=== PATIENT | male | born 1985 | race Caucasian/White ===

== ENCOUNTER 2022-06-20 18:19 | Inpatient (IN) | payer MEDICAID, OTHER ==
--- NOTE | 2022-06-20 18:57 | ED ---
General Adult HPI <Rahul Cohen - Last Filed: 06/21/22 04:47> - General Source: patient, family Mode of arrival: ambulatory Limitations: no limitations <Sammy Robb - Last Filed: 06/22/22 03:12> - General Chief complaint: Psychiatric Symptoms Stated complaint: mental health Time Seen by Provider: 06/20/22 18:27 - History of Present Illness Initial comments: This is a 36-year-old male with a past medical history including possible schizophrenia and manic depression presents emergency department with his sister for paranoia and increasing agitation. The patient himself was anxious on arriv al and stated that he did relapse with methamphetamines with his most recent use yesterday. The patient stated that he also uses Kratom every day. The patient's sister stated that the patient has been increasingly paranoid and he did confirm this. The patient's sister petitioned the patient for his behavior and did state that the patient was recently moving up here from [place]. The patient denied any other acute pain or distress at this time but was paranoid on evaluation as well as anxious. (Sammy Robb) - Related Data Home Medications Medication Instructions Recorded Confirmed Bictegrav/Emtricit/Tenofov Ala 1 tab PO DAILY 06/20/22 06/21/22 [Biktarvy 50-200-25 mg Tablet] FLUoxetine HCL [PROzac] 30 mg PO DAILY 06/20/22 06/21/22 OLANZapine [ZyPREXA] 5 mg PO DAILY 06/20/22 06/21/22 busPIRone HCL 5 mg PO BID 06/20/22 06/21/22 Allergies Allergy/AdvReac Type Severity Reaction Status Date / Time No Known Allergies Allergy Verified 06/21/22 18:06 Review of Systems ROS Other: All systems not noted in ROS Statement are negative. <Rahul Cohen - Last Filed: 06/21/22 04:47> ROS Other: All systems not noted in ROS Statement are negative. <Sammy Robb - Last Filed: 06/22/22 03:12> ROS Statement: Those systems with pertinent positive or pertinent negative responses have been documented in the HPI. Past Medical History Past Medical History: Asthma History of Any Multi-Drug Resistant Organisms: None Reported Past Surgical History: No Surgical Hx Reported Past Psychological History: Anxiety, Depression, Schizophrenia Smoking Status: Current every day smoker Past Drug Use History: Methamphetamine <Sammy Robb - Last Filed: 06/22/22 03:12> General Exam Limitations: no limitations General appearance: alert, anxious Head exam: Present: atraumatic, normocephalic, normal inspection Eye exam: Present: normal appearance, PERRL Pupils: Present: normal accommodation ENT exam: Present: normal exam, normal oropharynx, mucous membranes moist Neck exam: Present: normal inspection, full ROM Respiratory exam: Present: normal lung sounds bilaterally Cardiovascular Exam: Present: regular rate, normal rhythm, normal heart sounds GI/Abdominal exam: Present: soft, normal bowel sounds Extremities exam: Present: normal inspection, full ROM, other (Multiple superficial abrasions and lacerations noted to the bilateral forearms.) Back exam: Present: normal inspection, full ROM Neurological exam: Present: alert, oriented X3, CN II-XII intact Psychiatric exam: Present: anxious, other (Paranoid) Skin exam: Present: warm, dry <Sammy Robb - Last Filed: 06/22/22 03:12> Course Vital Signs 06/20/22 06/21/22 18:21 07:30 Temperature 97.6 F Pulse Rate 99 115 H Respiratory 20 20 Rate Blood Pressure 165/88 122/83 O2 Sat by Pulse 99 96 Oximetry Medical Decision Making <Rahul Cohen - Last Filed: 06/21/22 04:47> - Lab Data Result diagrams: 06/21/22 12:57 06/21/22 12:57 <Sammy Robb - Last Filed: 06/22/22 03:12> - Medical Decision Making Patient signed out to me pending results of EPS evaluation. Was updated by EPS that they will reevaluate after another observation period, as the patient is still intoxicated with drugs. Disposition still pending at this time. (Rahul Cohen) Was pt. sent in by a medical professional or institution (, PA, [facility], urgent care, hospital, or group home...) When possible be specific @ -No Did you speak to anyone other than the patient for history (EMS, parent, family, police, friend...)? What history was obtained from this source @ -Yes, patient's sister and friend who stated the patient was paranoid and was relapsed with methamphetamine use. They did also petition the patient. Did you review nursing and triage notes (agree or disagree)? Why? @ -I reviewed and agree with nursing and triage notes Were old charts reviewed (outside hosp., previous admission, EMS record, old EKG, old radiological studies, urgent care reports/EKG's, group home records)? Report findings @ -No old charts were reviewed Differential Diagnosis (chest pain, altered mental status, abdominal pain women, abdominal pain men, vaginal bleeding, weakness, fever, dyspnea, syncope, headache, dizziness, GI bleed, back pain, seizure, CVA, palpatations, mental health)? @ -Acute psychosis, methamphetamine abuse, polysubstance abuse, paranoia EKG interpreted by me (3pts min.). @ -None X-rays interpreted by me (1pt min.). @ -None done CT interpreted by me (1pt min.). @ -None done U/S interpreted by me (1pt. min.). @ -None done What testing was considered but not performed or refused? (CT, X-rays, U/S, labs)? Why? @ -None What meds were considered but not given or refused? Why? @ -None Did you discuss the management of the patient with other professionals (professionals i.e. , PA, [facility], lab, RT, psych nurse, medical social consultant, mineral technologist, teacher, community service patrol officer, wrapper caser)? Give summary @ -Yes, EPS nurse Was smoking cessation discussed for >3mins.? @ -Yes Was critical care preformed (if so, how long)? @ -No Were there social determinants of health that impacted care today? How? (Homelessness, low income, unemployed, alcoholism, drug addiction, transportation, low edu. Level, literacy, decrease access to med. care, [facility], rehab)? @ -Acute addiction Was there de-escalation of care discussed even if they declined (Discuss DNR or withdrawal of care, Hospice)? DNR status @ -No What co-morbidities impacted this encounter? (DM, HTN, Smoking, COPD, CAD, Cancer, CVA, ARF, Chemo, Hep., AIDS, mental health diagnosis, sleep apnea, morbid obesity)? @ -Polysubstance abuse, previous karen Was patient admitted / discharged? Hospital course, mention meds given and route, prescriptions, significant lab abnormalities, going to OR and other pertinent info. @ -The patient was seen and evaluated in emergency department. Physical exam, the patient was anxious however was able to answer questions appropriately. The patient stated that he did have paranoia but denied any suicidal or homicidal ideation. The patient did admit to using methamphetamine but stated that he had increasing paranoia over the last several days. The patient's family were also concerned about this and petition the patient. The patient remained stable and will be signed out pending EPS evaluation. Undiagnosed new problem with uncertain prognosis? @ -No Drug Therapy requiring intensive monitoring for toxicity (Heparin, Nitro, Insulin, Cardizem)? @ -No Were any procedures done? @ -No Diagnosis/symptom? @ -Polysubstance abuse, acute paranoia, psychosis Acute, or Chronic, or Acute on Chronic? @ -Acute Uncomplicated (without systemic symptoms) or Complicated (systemic symptoms)? @ -Complicated Side effects of treatment? @ -No Exacerbation, Progression, or Severe Exacerbation? @ -No Poses a threat to life or bodily function? How? (Chest pain, USA, AR, pneumonia, PE, COPD, DKA, ARF, appy, cholecystitis, CVA, Diverticulitis, Homicidal, Suicidal, threat to staff... and all critical care pts) @ -No 06/22/22 - chart review showed that the patient was admitted to the behavioral health unit in stable condition. The patient was admitted on 06/21/2022 under the previous physician's care. The patient was admitted in stable condition. (Sammy Robb) - Lab Data Lab Results 06/20/22 06/21/22 06/21/22 Range/Units 18:59 12:57 12:57 WBC 6.4 (3.8-10.6) k/uL RBC 5.05 (4.30-5.90) m/uL Hgb 15.6 (13.0-17.5) gm/dL Hct 46.3 (39.0-53.0) % MCV 91.6 (80.0-100.0) fL MCH 30.8 (25.0-35.0) pg MCHC 33.6 (31.0-37.0) g/dL RDW 12.5 (11.5-15.5) % Plt Count 169 (150-450) k/uL MPV 8.4 Neutrophils % 56 % Lymphocytes % 35 % Monocytes % 5 % Eosinophils % 1 % Basophils % 0 % Neutrophils # 3.6 (1.3-7.7) k/uL Lymphocytes # 2.2 (1.0-4.8) k/uL Monocytes # 0.3 (0-1.0) k/uL Eosinophils # 0.1 (0-0.7) k/uL Basophils # 0.0 (0-0.2) k/uL Sodium 138 (137-145) mmol/L Potassium 4.1 (3.5-5.1) mmol/L Chloride 100 (98-107) mmol/L Carbon Dioxide 27 (22-30) mmol/L Anion Gap 11 mmol/L BUN 14 (9-20) mg/dL Creatinine 1.01 (0.66-1.25) mg/dL Est GFR (CKD-EPI)AfAm >90 (>60 ml/min/1.73 sqM) Est GFR (CKD-EPI)NonAf >90 (>60 ml/min/1.73 sqM) Glucose 97 (74-99) mg/dL Calcium 9.2 (8.4-10.2) mg/dL Total Bilirubin 1.2 (0.2-1.3) mg/dL AST 37 (17-59) U/L ALT 17 (4-49) U/L Alkaline Phosphatase 70 (38-126) U/L Total Protein 8.4 H (6.3-8.2) g/dL Albumin 4.8 (3.5-5.0) g/dL Urine Color Urine Appearance (Clear) Urine pH (5.0-8.0) Ur Specific Jenison (1.001-1.035) Urine Protein (Negative) Urine Glucose (UA) (Negative) Urine Ketones (Negative) Urine Blood (Negative) Urine Nitrite (Negative) Urine Bilirubin (Negative) Urine Urobilinogen (<2.0) mg/dL Ur Leukocyte Esterase (Negative) Urine RBC (0-5) /hpf Urine WBC (0-5) /hpf Urine Bacteria (None) /hpf Urine Mucus (None) /hpf Urine Opiates Screen Not Detected (NotDetected) Ur Oxycodone Screen Not Detected (NotDetected) Urine Methadone Screen Not Detected (NotDetected) Ur Propoxyphene Screen Not Detected (NotDetected) Ur Barbiturates Screen Not Detected (NotDetected) U Tricyclic Antidepress Not Detected (NotDetected) Ur Phencyclidine Scrn Not Detected (NotDetected) Ur Amphetamines Screen Detected H (NotDetected) U Methamphetamines Scrn Detected H (NotDetected) U Benzodiazepines Scrn Not Detected (NotDetected) Urine Cocaine Screen Not Detected (NotDetected) U Marijuana (THC) Screen Detected H (NotDetected) Coronavirus (PCR) (Not Detectd) 06/21/22 06/21/22 Range/Units 12:57 13:16 WBC (3.8-10.6) k/uL RBC (4.30-5.90) m/uL Hgb (13.0-17.5) gm/dL Hct (39.0-53.0) % MCV (80.0-100.0) fL MCH (25.0-35.0) pg MCHC (31.0-37.0) g/dL RDW (11.5-15.5) % Plt Count (150-450) k/uL MPV Neutrophils % % Lymphocytes % % Monocytes % % Eosinophils % % Basophils % % Neutrophils # (1.3-7.7) k/uL Lymphocytes # (1.0-4.8) k/uL Monocytes # (0-1.0) k/uL Eosinophils # (0-0.7) k/uL Basophils # (0-0.2) k/uL Sodium (137-145) mmol/L Potassium (3.5-5.1) mmol/L Chloride (98-107) mmol/L Carbon Dioxide (22-30) mmol/L Anion Gap mmol/L BUN (9-20) mg/dL Creatinine (0.66-1.25) mg/dL Est GFR (CKD-EPI)AfAm (>60 ml/min/1.73 sqM) Est GFR (CKD-EPI)NonAf (>60 ml/min/1.73 sqM) Glucose (74-99) mg/dL Calcium (8.4-10.2) mg/dL Total Bilirubin (0.2-1.3) mg/dL AST (17-59) U/L ALT (4-49) U/L Alkaline Phosphatase (38-126) U/L Total Protein (6.3-8.2) g/dL Albumin (3.5-5.0) g/dL Urine Color Yellow Urine Appearance Clear (Clear) Urine pH 5.5 (5.0-8.0) Ur Specific Jenison 1.030 (1.001-1.035) Urine Protein 1+ H (Negative) Urine Glucose (UA) Negative (Negative) Urine Ketones 3+ H (Negative) Urine Blood Negative (Negative) Urine Nitrite Negative (Negative) Urine Bilirubin 1+ H (Negative) Urine Urobilinogen 2.0 (<2.0) mg/dL Ur Leukocyte Esterase Negative (Negative) Urine RBC 1 (0-5) /hpf Urine WBC 1 (0-5) /hpf Urine Bacteria Rare H (None) /hpf Urine Mucus Few H (None) /hpf Urine Opiates Screen (NotDetected) Ur Oxycodone Screen (NotDetected) Urine Methadone Screen (NotDetected) Ur Propoxyphene Screen (NotDetected) Ur Barbiturates Screen (NotDetected) U Tricyclic Antidepress (NotDetected) Ur Phencyclidine Scrn (NotDetected) Ur Amphetamines Screen (NotDetected) U Methamphetamines Scrn (NotDetected) U Benzodiazepines Scrn (NotDetected) Urine Cocaine Screen (NotDetected) U Marijuana (THC) Screen (NotDetected) Coronavirus (PCR) Not Detected (Not Detectd) Disposition <Rahul Cohen - Last Filed: 06/21/22 04:47> Is patient prescribed a controlled substance at d/c from ED?: No Time of Disposition: 13:00 Decision to Admit Reason: Admit from EC Decision Date: 06/21/22 Decision Time: 13:00 <Sammy Robb - Last Filed: 06/22/22 03:12> Clinical Impression: Suicidal ideation, Acute psychosis, Polysubstance (excluding opioids) dependence Disposition: ADMITTED IP TO THIS HOSP Condition: Stable
[2022-06-20 19:52] LABS: Cocaine Screen,Urine Not Detected (NotDetected); Phencyclidine Screen,Urine Not Detected (NotDetected); Urn Cannabinoid Scrn Detected (NotDetected)
[2022-06-20 19:53] LABS: Amphetamine Screen,Urine Detected (NotDetected); Barbiturate Screen,Urine Not Detected (NotDetected); Benzodiazepines Screen,Urine Not Detected (NotDetected); Methadone Screen, Urine Not Detected (NotDetected); Opiate Screen,Urine Not Detected (NotDetected); Oxycodone Screen, Urine Not Detected (NotDetected); Tricyclic Antidepressant,Urine Not Detected (NotDetected)
[2022-06-20] MEDS ORDERED: diphenhydrAMINE 50 MG/ML 1 ML VIAL IM STA (20:03)
[2022-06-20] MEDS ORDERED: HALOPERIDOL LACTATE 5 MG/ML 1 ML VIAL IM STA (20:03)
[2022-06-20] MEDS ORDERED: LORazepam 2 MG/ML INJ IM STA (20:03)
[2022-06-21] MEDS ORDERED: ALPRAZolam 1 MG TAB PO STA ×2 (07:47→12:18)
[2022-06-21] MEDS ORDERED: NICOTINE 14MG/24HR PATCH TRANSDERM STA (12:19)
[2022-06-21 13:23] LABS: Basophils % (A) 0 %; Eosinophils # (A) 0.1 k/uL (0-0.7); Eosinophils % (A) 1 %; HCT 46.3 % (39.0-53.0); HGB 15.6 gm/dL (13.0-17.5); Lymphocytes # (A) 2.2 k/uL (1.0-4.8); Lymphocytes % (A) 35 %; MCH 30.8 pg (25.0-35.0); MCHC 33.6 g/dL (31.0-37.0); MCV 91.6 fL (80.0-100.0); Mean Platelet Volume 8.4; Monocytes # (A) 0.3 k/uL (0-1.0); Monocytes % (A) 5 %; Neutrophils # (A) 3.6 k/uL (1.3-7.7); Neutrophils % (A) 56 %; Platelet Count 169 k/uL (150-450); RBC 5.05 m/uL (4.30-5.90); RDW 12.5 % (11.5-15.5); WBC 6.4 k/uL (3.8-10.6)
[2022-06-21] MEDS: BIKTARVY PO SCH (13:27)
[2022-06-21 13:30] LABS: ALT 17 U/L (4-49); AST 37 U/L (17-59); African American GFR (CKD) >90 (>60 ml/min/1.73 sqM); Albumin 4.8 g/dL (3.5-5.0); Alkaline Phosphatase 70 U/L (38-126); Anion Gap 11 mmol/L; Blood Urea Nitrogen 14 mg/dL (9-20); Calcium 9.2 mg/dL (8.4-10.2); Carbon Dioxide 27 mmol/L (22-30); Chloride 100 mmol/L (98-107); Glucose 97 mg/dL (74-99); Non-African American GFR(CKD) >90 (>60 ml/min/1.73 sqM); Potassium 4.1 mmol/L (3.5-5.1); Sodium 138 mmol/L (137-145); Total Bilirubin 1.2 mg/dL (0.2-1.3); Total Protein 8.4 g/dL (6.3-8.2)
[2022-06-21 13:42] LABS: Appearance,Urine Clear (Clear); Bacteria,Urine Rare /hpf; Bilirubin,Urine 1+ (Negative); Blood,Urine Negative (Negative); Color,Urine Yellow; Glucose,Urine (UA) Negative (Negative); Leukocyte Esterase,Urine Negative (Negative); Mucus,Urine Few /hpf; Nitrite,Urine Negative (Negative); PH, Urine 5.5 (5.0-8.0); Protein,Urine 1+ (Negative); RBC,Urine 1 /hpf (0-5); WBC,Urine 1 /hpf (0-5)
[2022-06-21 13:45] LABS: Ketones,Urine 3+ (Negative)
[2022-06-21] MEDS ORDERED: MAG HYDROX/AL HYDROX/SIMETH 30 ML CUP PO PRN (17:01)
[2022-06-21] MEDS ORDERED: MAGNESIUM HYDROXIDE 2,400 MG/10 ML CUP PO PRN (17:01)
[2022-06-21] MEDS ORDERED: ACETAMINOPHEN TAB 325 MG TAB PO PRN (17:01)
--- NOTE | 2022-06-21 23:29 | P.MDCNMH ---
History of Present Illness H&P Date: 06/21/22 Chief Complaint: medical evaluation 36 year old male with HIV on medications patient was petitioned for evaluation due to behavioral issues, having increase agitations, and paranoia patient denies any medical concerns at this time, denies fever, chills, cough, URI, chest pain , SOB, nausea vomiting, abd pain or GI bleeding , denies any changes in urinary or bowel habits. patient admits to tobacco smoking , methamphetamine and denies alcohol Pertinent positives as noted in HPI. All other systems were reviewed and are negative Constitutional: No acute distress, conversant Eyes: Anicteric sclerae, moist conjunctiva, Pupils equal round reactive to light ENMT: NC/AT Oropharynx clear, no erythema, or exudates Neck: Supple, no masses, or JVD No carotid bruits No thyromegaly Lungs: Clear to auscultation Clear to percussion Normal respiratory effort, no accessory muscle use Cardiovascular: Heart regular in rate and rhythm, No murmurs, gallops, or rubs No peripheral edema Abdominal: Soft Nontender, no guarding, rebound or rigidity Abdomen moving with respiration Normoactive bowel sounds No hepatomegaly, No splenomegaly No palpable mass No abdominal wall hernia noted Skin: Normal temperature, tone, texture, turgor No induration No subcutaneous nodules No rash, lesions No ulcers Extremities: No digital cyanosis No clubbing Pedal pulses intact and symmetrical Radial pulses intact and symmetrical No calf tenderness Psychiatric: Alert and oriented to person, place and time Neuro Muscles Strength 5/5 in all 4 extremities Sensation to light touch grossly present throughout Cranial nerves II-XII grossly intact Lymphatics: no palpable cervical or supraclavicular lymph nodes A/P agitation , and paranoia management per psych HIV positive continue ART check CD4 blood work reviewed , unremarkable stable from medical stand point thank you for this consultation Past Medical History Past Medical History: Asthma History of Any Multi-Drug Resistant Organisms: None Reported Past Surgical History: No Surgical Hx Reported Smoking Status: Current every day smoker Medications and Allergies Home Medications Medication Instructions Recorded Confirmed Type Bictegrav/Emtricit/Tenofov Ala 1 tab PO DAILY 06/20/22 06/21/22 History [Biktarvy 50-200-25 mg Tablet] FLUoxetine HCL [PROzac] 30 mg PO DAILY 06/20/22 06/21/22 History OLANZapine [ZyPREXA] 5 mg PO DAILY 06/20/22 06/21/22 History busPIRone HCL 5 mg PO BID 06/20/22 06/21/22 History Allergies Allergy/AdvReac Type Severity Reaction Status Date / Time No Known Allergies Allergy Verified 06/21/22 18:06 Physical Exam Vitals: Vital Signs Temp Pulse Pulse Resp BP BP Pulse Ox 06/21/22 18:34 98.3 F 103 H 16 150/84 06/21/22 07:30 115 H 20 122/83 96 Intake and Output 06/21/22 06/21/22 06/22/22 14:59 22:59 06:59 Other: Weight 92.986 kg Cranial Nerve Examination - Cranial Nerves Cranial Nerve II- Optic: Intact Cranial Nerve III- Oculomotor: Intact Cranial Nerve IV- Trochlear: Intact Cranial Nerve V- Trigeminal: Intact Cranial Nerve - Abducens: Intact Cranial Nerve VII- Facial: Intact Cranial Nerve VIII- Auditory: Intact Cranial Nerve IX- Glossopharyngeal: Intact Cranial Nerve X- Vagus: Intact Cranial Nerve XI- Accessory: Intact Cranial Nerve XII- Hypoglossal: Intact Results CBC & Chem 7: 06/21/22 12:57 06/21/22 12:57 Labs: Abnormal Lab Results - Last 24 Hours (Table) 06/21/22 06/21/22 Range/Units 12:57 13:16 Total Protein 8.4 H (6.3-8.2) g/dL Urine Protein 1+ H (Negative) Urine Ketones 3+ H (Negative) Urine Bilirubin 1+ H (Negative) Urine Bacteria Rare H (None) /hpf Urine Mucus Few H (None) /hpf
[2022-06-22] MEDS ORDERED: hydrOXYzine pamoate 25 MG CAP PO PRN (03:24)
[2022-06-22] MEDS ORDERED: hydrOXYzine HCL 50 MG/ML 1 ML VIAL IM PRN (03:24)
[2022-06-22] MEDS ORDERED: haloperidoL 5 MG TAB PO PRN (03:25)
[2022-06-22] MEDS ORDERED: HALOPERIDOL LACTATE 5 MG/ML 1 ML VIAL IM PRN (03:25)
[2022-06-22] MEDS ORDERED: NICOTINE 14MG/24HR PATCH TRANSDERM SCH (09:00)
[2022-06-22] MEDS ORDERED: NON FORMULARY DRUG (Bictegrav/Emtricit/Tenofov Ala [Biktarvy 50-200-25 Mg Tablet] 1 EACH T PO SCH (09:00)
[2022-06-22] MEDS: BIKTARVY PO SCH (09:34)
--- NOTE | 2022-06-22 10:20 | P.HP ---
Psychiatric H&P - . H&P Date: 06/22/22 History & Physical: Allergies Allergy/AdvReac Type Severity Reaction Status Date / Time No Known Allergies Allergy Verified 06/21/22 18:06 Vital Signs Temp 98.1 F 06/22/22 03:21 Pulse 126 H 06/22/22 05:41 Resp 17 06/22/22 05:41 BP 125/87 06/22/22 05:41 Pulse Ox 99 06/22/22 05:41 FiO2 Intake & Output 06/21/22 06/22/22 06/22/22 18:59 06:59 18:59 Weight 92.986 kg Laboratory Last Values WBC 6.4 k/uL (3.8-10.6) 06/21/22 12:57 RBC 5.05 m/uL (4.30-5.90) 06/21/22 12:57 Hgb 15.6 gm/dL (13.0-17.5) 06/21/22 12:57 Hct 46.3 % (39.0-53.0) 06/21/22 12:57 MCV 91.6 fL (80.0-100.0) 06/21/22 12:57 MCH 30.8 pg (25.0-35.0) 06/21/22 12:57 MCHC 33.6 g/dL (31.0-37.0) 06/21/22 12:57 RDW 12.5 % (11.5-15.5) 06/21/22 12:57 Plt Count 169 k/uL (150-450) 06/21/22 12:57 MPV 8.4 06/21/22 12:57 Neutrophils % 56 % 06/21/22 12:57 Lymphocytes % 35 % 06/21/22 12:57 Monocytes % 5 % 06/21/22 12:57 Eosinophils % 1 % 06/21/22 12:57 Basophils % 0 % 06/21/22 12:57 Neutrophils # 3.6 k/uL (1.3-7.7) 06/21/22 12:57 Lymphocytes # 2.2 k/uL (1.0-4.8) 06/21/22 12:57 Monocytes # 0.3 k/uL (0-1.0) 06/21/22 12:57 Eosinophils # 0.1 k/uL (0-0.7) 06/21/22 12:57 Basophils # 0.0 k/uL (0-0.2) 06/21/22 12:57 Sodium 138 mmol/L (137-145) 06/21/22 12:57 Potassium 4.1 mmol/L (3.5-5.1) 06/21/22 12:57 Chloride 100 mmol/L (98-107) 06/21/22 12:57 Carbon Dioxide 27 mmol/L (22-30) 06/21/22 12:57 Anion Gap 11 mmol/L 06/21/22 12:57 BUN 14 mg/dL (9-20) 06/21/22 12:57 Creatinine 1.01 mg/dL (0.66-1.25) 06/21/22 12:57 Est GFR (CKD-EPI)AfAm >90 (>60 ml/min/1.73 sqM) 06/21/22 12:57 Est GFR (CKD-EPI)NonAf >90 (>60 ml/min/1.73 sqM) 06/21/22 12:57 Glucose 97 mg/dL (74-99) 06/21/22 12:57 Calcium 9.2 mg/dL (8.4-10.2) 06/21/22 12:57 Total Bilirubin 1.2 mg/dL (0.2-1.3) 06/21/22 12:57 AST 37 U/L (17-59) 06/21/22 12:57 ALT 17 U/L (4-49) 06/21/22 12:57 Alkaline Phosphatase 70 U/L (38-126) 06/21/22 12:57 Total Protein 8.4 g/dL (6.3-8.2) H 06/21/22 12:57 Albumin 4.8 g/dL (3.5-5.0) 06/21/22 12:57 Urine Color Yellow 06/21/22 13:16 Urine Appearance Clear (Clear) 06/21/22 13:16 Urine pH 5.5 (5.0-8.0) 06/21/22 13:16 Ur Specific [place] 1.030 (1.001-1.035) 06/21/22 13:16 Urine Protein 1+ (Negative) H 06/21/22 13:16 Urine Glucose (UA) Negative (Negative) 06/21/22 13:16 Urine Ketones 3+ (Negative) H 06/21/22 13:16 Urine Blood Negative (Negative) 06/21/22 13:16 Urine Nitrite Negative (Negative) 06/21/22 13:16 Urine Bilirubin 1+ (Negative) H 06/21/22 13:16 Urine Urobilinogen 2.0 mg/dL (<2.0) 06/21/22 13:16 Ur Leukocyte Esterase Negative (Negative) 06/21/22 13:16 Urine RBC 1 /hpf (0-5) 06/21/22 13:16 Urine WBC 1 /hpf (0-5) 06/21/22 13:16 Urine Bacteria Rare /hpf (None) H 06/21/22 13:16 Urine Mucus Few /hpf (None) H 06/21/22 13:16 Urine Opiates Screen Not Detected (NotDetected) 06/20/22 18:59 Ur Oxycodone Screen Not Detected (NotDetected) 06/20/22 18:59 Urine Methadone Screen Not Detected (NotDetected) 06/20/22 18:59 Ur Propoxyphene Screen Not Detected (NotDetected) 06/20/22 18:59 Ur Barbiturates Screen Not Detected (NotDetected) 06/20/22 18:59 U Tricyclic Antidepress Not Detected (NotDetected) 06/20/22 18:59 Ur Phencyclidine Scrn Not Detected (NotDetected) 06/20/22 18:59 Ur Amphetamines Screen Detected (NotDetected) H 06/20/22 18:59 U Methamphetamines Scrn Detected (NotDetected) H 06/20/22 18:59 U Benzodiazepines Scrn Not Detected (NotDetected) 06/20/22 18:59 Urine Cocaine Screen Not Detected (NotDetected) 06/20/22 18:59 U Marijuana (THC) Screen Detected (NotDetected) H 06/20/22 18:59 Coronavirus (PCR) Not Detected (Not Detectd) 06/21/22 12:57 06/22/22 08:30 IDENTIFYING DATA: Patient is a single, employed, 36-year-old [place]ien male who is presenting with suicidal ideation, psychosis, and substance use. HPI: Patient was brought in involuntarily to the ED after receiving a petition by his sister stating "Someone is following him. Shadow people and invisible people living in the house. Thinks I am going to kill him." Patient's UDS was positive for amphetamines, methamphetamines, and marijuana. He also admitted to using Kratom every day. He was given Haldol, Ativan, Benadryl while in the ED. Despite this, patient was making nonsensical statements following intoxication from the substances. Patient was reassessed after he was more linear in his thinking and he said that he felt embarrassed and a burden to his family. He was reporting suicidal ideation with a plan to overdose or cut himself. He was agreeable to voluntary admission to the inpatient psychiatric unit at [facility]. Patient says that he has been sober of methamphetamine use for the past 8 months but had a relapse recently and used 2 days in a row. He says he cannot recall the amount of methamphetamine he used but he says that he did not attend work as a result of this. He reports residing with his sister who he says has been concerned about his health. He says that she has been considering pursuing guardianship on him due to his substance use issues. Patient reports that the trigger for using methamphetamine for him is experiencing auditory and visual hallucinations. He says he sees "flesh eating demons that are black and growling" especially at night. He says that he "hears them eating people". He also says they prevent him from walking. He states that he has been experiencing this since childhood but that it has worsened during his adulthood. He says that these experiences are ongoing even while sober of substances. He says that Zyprexa has been helpful for these experiences. He denies command auditory hallucinations currently. He denies auditory and visual hallucinations currently. Patient states that he was only endorsing suicidal ideation due to his substance use. He expresses that due to his sexual orientation, he has been judged by others. Patient becomes tearful as he says that he sometimes uses as a method of trying to "blend in" with others. Patient endorses a history of depression and anxiety. He says that that Effexor and Wellbutrin have been very helpful for this. He reports good sleep with the Zyprexa. He does not report any appetite concerns. Patient currently denies suicidal ideation, intent or plan. He denies homicidal ideation, intent or plan. While sober of substances, patient denies constellation of symptoms consistent with karen. He repeatedly requests to be on Xanax or Ativan to help him with anxiety. Substance use history as described below. PSYCH HX: He reports receiving treatment for schizoaffective disorder. Past tx: Effexor 75 mg daily, Wellbutrin 100 mg daily, Zyprexa 5 mg, Fluoxetine (was not helpful), Xanax (helpful), Buspar 10 mg daily Hospitalizations: Denies NSSI: Cutting for [facility]" SA: Denies PMH: Was on Suboxone in [place]. HIV (on treatment) ALLERGIES: NKDA PCP: Dr. Penaloza (setting up) SUBSTANCE HX: Alcohol: Denies Cocaine: Denies Tobacco: 1 ppd Cannabis: "A lot of weed" daily Kratom: Started using 2 months ago Meth: Started using 14 -15 years ago. He was sober for 8 months and had a recent relapse prior to hospitalization. He endorses having attended rehab in the past Fentanyl and heroin use: Started when he was 19-20 years old. In 20s: "A lot" and estimates to be 10 bags daily. He says he last used 9-10 months. Denies using other substances SOCIAL/LEGAL HX: He grew up in [place] with mother and 3 sisters. They moved to [place] when he was child. He came back to [place] (2 months ago) after being imprisoned. He says he was released from nursing home in Apr. He is living with his sister. He says he reads on Paganism and Satanism. Highest level of education: GED Vocation: Factory Legal problems: Arson - was in skilled nursing and nursing home and spent about 1 year in the system. FAM PSYCH HX: He suspects on his mother's side Suicide attempts: Denies MENTAL STATUS EXAM: General Appearance: Patient appears to be stated age is alert, directable, and attempts to cooperate] Patient appears to have fair hygiene and grooming. Behavior: Patient is seated without any agitated behavior. Speech: Patient's speech is fluent and nonpressured. Mood/Affect: Patient reports their mood is depressed, affect is congruent. Suicidality/Homicidality: Patient denies having any homicidal ideation intent or plan. Denies any suicidal ideations intent or plan Perceptions: Patient denies any visual hallucinations and denies any auditory hallucinations. Endorses recent AVH last night Though content/process: There is no evidence of any delusional thought content and thought process is linear and goal-directed. Memory and concentration: AOX3, grossly intact for the purposes of this session. Can spell "WORLD" backwards Judgment and insight: Poor STRENGTHS/WEAKNESSES: Strength is family support. Weakness is comorbid substance use and poor insight. 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 Patient signed adult voluntary form and medication consent and is placed in patient's chart. -Medications: - Increase Zyprexa to 10 mg qHS for psychosis - Start Effexor 75 mg daily for mood - NRT - nicorette gum -Patient was counselled on substance abuse and desired to cut back on use. Motivational interviewing. Patient was trying to find Suboxone provider -Patient was informed of the risks, benefits and side effects of the medication and patient verbally consented to taking the medications. Patient signed med consent form and was placed in chart. -Internal Medicine consult to perform medical evaluation and physical. -SW on board for discharge planning. Encourage patient to participate in groups to work on coping skills. 06/22/22 09:00
[2022-06-22] MEDS: VENLAFAXINE HCL ER 75 MG CAP PO SCH (10:40)
[2022-06-22 11:13] LABS: Chol/HDL Ratio 2.76 Ratio; LDL Cholesterol,Calculated 93.9 mg/dL (0.0-131.0)
[2022-06-22] MEDS: OLANZapine 10 MG TAB PO SCH (21:55)
[2022-06-23] MEDS: VENLAFAXINE HCL ER 75 MG CAP PO SCH (08:54)
[2022-06-23] MEDS: BIKTARVY PO SCH (08:54)
[2022-06-23] MEDS: NICOTINE GUM (POLACRILEX) 2 MG GUM BUCCAL PRN ×4 (08:55→18:07)
--- NOTE | 2022-06-23 14:54 | P.PN ---
Progress Note - Text Progress Note Date: 06/23/22 S&O: Patient was seen in rounds. He said he was snorting meth for the last few days after being sober for about 8 months. He said he started to see things and hear voices and so he came to the hospital. He was also abusing cannabis and opiates. Apparently he was in long-term and fdc in the past. He said he has ongoing depression and wanted to know if he can take Wellbutrin. He was counseled about. He is on 10 mg of Zyprexa at night and has been sleepy during daytime and even during examination he was yawning often. He did not want the Zyprexa dose to be reduced to 5 mg even though his psychosis appears to be related to meth abuse and was counseled about it. His drug screening was n egative for opiates and he said he has not been doing opiates for a while now. He also last when he can go home. He was counseled about it. Even though he had gone through rehab in the past he said he will have outpatient counseling regarding substance abuse. This is a white male with adequate hygiene. He is calm and fairly cooperative. He did not show any psychomotor agitation or retardation. But he was yawning quite often. His speech is spontaneous relevant and goal-directed. Mood is somewhat anxious and angry. Affect is appropriate to the thought content. He denies current hallucinations, delusional thinking suicide and homicide thoughts. His sensorium is clear. A&P: Continue Zyprexa therapies including groups. Discontinue Effexor since he is on Zyprexa and Effexor XR takes a long time to work.
[2022-06-23 15:07] LABS: T4/T8 Ratio (CD4:CD8) 0.4 (1.0-3.7)
[2022-06-23] MEDS: OLANZapine 10 MG TAB PO SCH (21:04)
[2022-06-24] MEDS: BIKTARVY PO SCH (08:15)
[2022-06-24] MEDS: NICOTINE GUM (POLACRILEX) 2 MG GUM BUCCAL PRN ×2 (10:44→16:42)
--- NOTE | 2022-06-24 13:10 | P.PN ---
Progress Note - Text Progress Note Date: 06/24/22 S&O: Patient was seen in rounds. He said he slept better last night and his appetite is getting better. He asked why his Effexor was discontinued. He was counseled that his problems appear to be related to meth abuse and he is on Zyprexa which will help to stabilize his mood if he has independent mood disorder and Effexor will interfere with more stabilization. He understood and accepted this explanation. He also said he will stop doing meth and other drugs because he learned his lesson about the adverse effects of meth on his body and mind. He said he will stay with his sister who apparently is trying to be his guardian and plans on going on disability. He was advised if he stays clean most likely he would be able to work and working is always better than staying home and doing nothing which can cause lot problem and may take him back to abusing drugs. He agreed. This is a white male with adequate hygiene. He does not show any psychomotor agitation or retardation. He has not been yawning today. His speech is spontaneous relevant and goal-directed. His mood is euthymic to cheerful and affect is appropriate. He denies hallucinations delusional thinking suicide and homicide thoughts. His sensorium is clear. A&P: Continue Zyprexa, groups and other therapies.
[2022-06-24] MEDS: OLANZapine 10 MG TAB PO SCH (20:06)
[2022-06-25 07:16] VITALS: BP 114/66; PULSE 54; RESP 14; TEMP 97.8
[2022-06-25] MEDS: BIKTARVY PO SCH (08:15)
--- NOTE | 2022-06-25 11:10 | P.DS ---
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 After psychiatric H&P he was started on Zyprexa 10 mg at bedtime and Effexor 75 mg daily in addition to other comfort medications. After general medical H&P he was started on his HIV medication by Dr. Patten. He was also asked to attend the groups. But he was not attending groups until yesterday. When I saw him on 06/23/2022 his Effexor was discontinued since he was already on Zyprexa and Effexor takes a long time to work if at all is going to work and is not really indicated for mood disorders. Patient had some questions about this and he was counseled and he agreed to take only mood stabilizer instead of antidepressants. He gradually improved did not have any withdrawal symptoms except for yawning for the first couple of days. His mood became euthymic, his irritability was gone and was more cooperative. He had agreed to seek outpatient drug counseling and mental health counseling also in addition to taking his medication. He said he will be living with his sister who is supportive of him. His discharge plan was discussed by the treatment team today and it was agreed to discharge him. Mental status examination: This is a white male with adequate hygiene. He was laying down in his bed when he was called. He does not show any psychomotor agitation or retardation. He continues to be calm and cooperative. His speech is spontaneous relevant and goal-directed. His mood is euthymic to cheerful and affect is appropriate. Denies hallucinations delusional thinking suicide and homicide thoughts. Sensorium is clear. Assessment: Please see mental status examination under hospital course above. Health Concerns: HIV Pertinent Studies: None Procedures: None Patient Condition at Discharge: Stable Plan - Discharge Summary Discharge Rx Participant: No New Discharge Prescriptions: New Mag Hydrox/Al Hydrox/Simeth [Maalox] 30 ml PO Q4HR PRN ml PRN Reason: Gi Upset Magnesium Hydroxide [Milk of Magnesia Concentrate] 2,400 mg PO DAILY PRN ml PRN Reason: Constipation Acetaminophen Tab [Tylenol] 650 mg PO Q4HR PRN tab PRN Reason: Pain/Discomfort OLANZapine [ZyPREXA] 10 mg PO HS tab Continue Bictegrav/Emtricit/Tenofov Ala [Biktarvy 50-200-25 mg Tablet] 1 tab PO DAILY Discontinued busPIRone HCL 5 mg PO BID OLANZapine [ZyPREXA] 5 mg PO DAILY FLUoxetine HCL [PROzac] 30 mg PO DAILY Discharge Medication List Bictegrav/Emtricit/Tenofov Ala [Biktarvy 50-200-25 mg Tablet] 1 tab PO DAILY 06/20/22 [History] Acetaminophen Tab [Tylenol] 650 mg PO Q4HR PRN tab 06/25/22 [Rx] Mag Hydrox/Al Hydrox/Simeth [Maalox] 30 ml PO Q4HR PRN ml 06/25/22 [Rx] Magnesium Hydroxide [Milk of Magnesia Concentrate] 2,400 mg PO DAILY PRN ml 06/25/22 [Rx] OLANZapine [ZyPREXA] 10 mg PO HS tab 06/25/22 [Rx] Follow up Appointment(s)/Referral(s): None,Stated [REFERRING] - 1-2 days Activity/Diet/Wound Care/Special Instructions: Avoid the use of street drugs and alcohol. Take all medications as prescribed. When you are in need of refills on your medications, please contact your medical provider and/or outpatient psychiatrist to have this done. Please go to scheduled outpatient appointments for aftercare treatment. If symptoms return or become worse, call the crisis line at and/or go to the nearest emergency room for evaluation.
[2022-06-25] MEDS: NICOTINE GUM (POLACRILEX) 2 MG GUM BUCCAL PRN ×2 (11:30→14:49)
== END 2022-06-25 15:33 | disposition home or self-care (01) | DRG 750 ==
LOC: EC 18:19 → 3MHU 06-21 16:49
PROVIDERS: ADMIT Psychiatry & Neurology Psychiatry; ATTEND Psychiatry & Neurology Psychiatry
DX: F25.1 Schizoaffective disorder, depressive type (principal); B20 Human immunodeficiency virus [HIV] disease; R45.851 Suicidal ideations; F15.259 Other stimulant dependence with stimulant-induced psychotic disorder, unspecified; F12.20 Cannabis dependence, uncomplicated; Z28.310 Unvaccinated for COVID-19; F11.20 Opioid dependence, uncomplicated; J45.909 Unspecified asthma, uncomplicated; F41.9 Anxiety disorder, unspecified; F17.210 Nicotine dependence, cigarettes, uncomplicated; Z79.899 Other long term (current) drug therapy; Z71.51 Drug abuse counseling and surveillance of drug abuser; Z71.6 Tobacco abuse counseling; Z20.822 Contact with and (suspected) exposure to COVID-19
CPT/HCPCS: 36415; 80053; 80061; 80306; 81001; 82075; 83036; 85025; 86360; 87635; 96372; 99285

== ENCOUNTER 2022-10-07 09:51 | Emergency (ER) | payer OTHER ==
[2022-10-07 09:57] VITALS: RESP 18; TEMP 98.2
[2022-10-07] MEDS ORDERED: KETOROLAC 15 MG/ML 1 ML VIAL IVP STA (10:12)
[2022-10-07] MEDS ORDERED: SODIUM CHLORIDE 0.9% 1,000 ML IV STA (10:12)
--- NOTE | 2022-10-07 10:15 | ED ---
General Adult HPI - General Chief complaint: Urogenital Stated complaint: poss kidney stone Time Seen by Provider: 10/07/22 10:04 Source: patient Mode of arrival: ambulatory Limitations: no limitations - History of Present Illness Initial comments: 37-year-old male with past medical history significant for kidney stones presents to ED with a chief complaint of dysuria. Patient states 2 days ago started to experience difficulty urinating. Yesterday, started to experience pain with urination and right flank pain. Patient states flank pain is constant and sharp and stabbing in nature. Associated chills. Denies fever. No nausea or vomiting. Notes history of prior kidney stones states that pain feels similar to this. No other complaints. - Related Data Home Medications Medication Instructions Recorded Confirmed Bictegrav/Emtricit/Tenofov Ala 1 tab PO DAILY 06/20/22 06/21/22 [Biktarvy 50-200-25 mg Tablet] Previous Rx's Medication Instructions Recorded Acetaminophen Tab [Tylenol] 650 mg PO Q4HR PRN tab 06/25/22 Mag Hydrox/Al Hydrox/Simeth 30 ml PO Q4HR PRN ml 06/25/22 [Maalox] Magnesium Hydroxide [Milk of 2,400 mg PO DAILY PRN ml 06/25/22 Magnesia Concentrate] OLANZapine [ZyPREXA] 10 mg PO HS tab 06/25/22 Allergies Allergy/AdvReac Type Severity Reaction Status Date / Time No Known Allergies Allergy Verified 10/07/22 09:57 Review of Systems ROS Statement: Those systems with pertinent positive or pertinent negative responses have been documented in the HPI. ROS Other: All systems not noted in ROS Statement are negative. Past Medical History Past Medical History: Asthma Additional Past Medical History / Comment(s): Kidney stones History of Any Multi-Drug Resistant Organisms: None Reported Past Surgical History: No Surgical Hx Reported Past Psychological History: Anxiety, Depression, Schizophrenia Smoking Status: Current every day smoker Past Alcohol Use History: None Reported Past Drug Use History: Marijuana, Methamphetamine General Exam Limitations: no limitations General appearance: alert, in no apparent distress Eye exam: Present: normal appearance Respiratory exam: Present: normal lung sounds bilaterally Cardiovascular Exam: Present: regular rate, normal rhythm GI/Abdominal exam: Present: soft (Diffuse abdominal tenderness. Patient was in the suprapubic region. No rebound guarding or rigidity. Right CVA tenderness to percussion.) Neurological exam: Present: alert, oriented X3 Skin exam: Present: warm, dry Course Vital Signs 10/07/22 10/07/22 09:54 11:46 Temperature 98.2 F Pulse Rate 92 86 Respiratory 18 18 Rate Blood Pressure 125/82 132/80 O2 Sat by Pulse 99 98 Oximetry Medical Decision Making - Medical Decision Making Was pt. sent in by a medical professional or institution (, [facility], SOCIAL SERVICES, urgent care, hospital, or residential...) When possible be specific @ -No Did you speak to anyone other than the patient for history (EMS, parent, family, police, friend...)? What history was obtained from this source @ -No Did you review nursing and triage notes (agree or disagree)? Why? @ -I reviewed and agree with nursing and triage notes Were old charts reviewed (outside hosp., previous admission, EMS record, old EKG, old radiological studies, urgent care reports/EKG's, residential records)? Report findings @ -No old charts were reviewed Differential Diagnosis (chest pain, altered mental status, abdominal pain women, abdominal pain men, vaginal bleeding, weakness, fever, dyspnea, syncope, headache, dizziness, GI bleed, back pain, seizure, CVA, palpatations, mental health, musculoskeletal)? @ -Differential Abdominal Pain Men: Appendicitis, cholecystitis, diverticulosis, ischemic bowel, pancreatitis, hepatitis, UTI, gastroenteritis, AAA, incarcerated hernia, bowel obstruction, constipation, inflammatory bowel, hepatitis, peptic ulcer disease, splenic infarction, perforated viscus, testicular torsion, this is not meant to be an all-inclusive list EKG interpreted by me (3pts min.). @ -None X-rays interpreted by me (1pt min.). @ -None done CT interpreted by me (1pt min.). @ -CT showed nonobstructing stone in the right kidney measuring 2 mm. No hydronephrosis. U/S interpreted by me (1pt. min.). @ -None done What testing was considered but not performed or refused? (CT, X-rays, U/S, l abs)? Why? @ -None What meds were considered but not given or refused? Why? @ -None Did you discuss the management of the patient with other professionals (professionals i.e. , [facility], SOCIAL SERVICES, lab, RT, psych nurse, licensed clinical social worker, pipe line maintenance supervisor, teacher, detention officer, showcase trimmer)? Give summary @ -No Was smoking cessation discussed for >3mins.? @ -No Was critical care preformed (if so, how long)? @ -No Were there social determinants of health that impacted care today? How? (Homelessness, low income, unemployed, alcoholism, drug addiction, transportation, low edu. Level, literacy, decrease access to med. care, alf, rehab)? @ -No Was there de-escalation of care discussed even if they declined (Discuss DNR or withdrawal of care, Hospice)? DNR status @ -No What co-morbidities impacted this encounter? (DM, HTN, Smoking, COPD, CAD, Cance r, CVA, ARF, Chemo, Hep., AIDS, mental health diagnosis, sleep apnea, morbid obesity)? @ -None Was patient admitted / discharged? Hospital course, mention meds given and route, prescriptions, significant lab abnormalities, going to OR and other pertinent info. @ -Discharged. Urine reveals WBC 38. Leukocyte esterase moderate. Does not have a white count. Vital signs stable while in the ED, afebrile. Imaging shows no evidence of obstructing stone or hydronephrosis. Urine will be sent for culture. If positive, patient will be started antibiotics. Discharged home in stable condition. Discussed return precautions with patient who verbalizes agreement. Undiagnosed new problem with uncertain prognosis? @ -No Drug Therapy requiring intensive monitoring for toxicity (Heparin, Nitro, Insulin, Cardizem)? @ -No Were any procedures done? @ -No Diagnosis/symptom? @ -Nonobstructing right renal stone, dysuria Acute, or Chronic, or Acute on Chronic? @ -Acute Uncomplicated (without systemic symptoms) or Complicated (systemic symptoms)? @ -Uncomplicated Side effects of treatment? @ -No Exacerbation, Progression, or Severe Exacerbation? @ -No Poses a threat to life or bodily function? How? (Chest pain, [place], [place], pneumonia, PE, COPD, DKA, ARF, appy, cholecystitis, CVA, Diverticulitis, Homicidal, Suicidal, threat to staff... and all critical care pts) @ -No - Lab Data Result diagrams: 10/07/22 10:21 10/07/22 10:21 Lab Results 10/07/22 10/07/22 10/07/22 Range/Units 10:21 10:21 10:21 WBC 7.6 (3.8-10.6) k/uL RBC 4.68 (4.30-5.90) m/uL Hgb 15.5 (13.0-17.5) gm/dL Hct 43.4 (39.0-53.0) % MCV 92.8 (80.0-100.0) fL MCH 33.1 (25.0-35.0) pg MCHC 35.7 (31.0-37.0) g/dL RDW 14.1 (11.5-15.5) % Plt Count 211 (150-450) k/uL MPV 8.0 Neutrophils % 66 % Lymphocytes % 27 % Monocytes % 4 % Eosinophils % 1 % Basophils % 0 % Neutrophils # 5.0 (1.3-7.7) k/uL Lymphocytes # 2.1 (1.0-4.8) k/uL Monocytes # 0.3 (0-1.0) k/uL Eosinophils # 0.1 (0-0.7) k/uL Basophils # 0.0 (0-0.2) k/uL Sodium 140 (137-145) mmol/L Potassium 3.9 (3.5-5.1) mmol/L Chloride 105 (98-107) mmol/L Carbon Dioxide 23 (22-30) mmol/L Anion Gap 12 mmol/L BUN 12 (9-20) mg/dL Creatinine 0.91 (0.66-1.25) mg/dL Est GFR (CKD-EPI)AfAm >90 (>60 ml/min/1.73 sqM) Est GFR (CKD-EPI)NonAf >90 (>60 ml/min/1.73 sqM) Glucose 118 H (74-99) mg/dL Calcium 10.0 (8.4-10.2) mg/dL Total Bilirubin 0.7 (0.2-1.3) mg/dL AST 22 (17-59) U/L ALT 14 (4-49) U/L Alkaline Phosphatase 101 (38-126) U/L Total Protein 9.6 H (6.3-8.2) g/dL Albumin 5.3 H (3.5-5.0) g/dL Amylase 65 (30-110) U/L Lipase 152 (23-300) U/L Urine Color Light Red Urine Appearance Cloudy (Clear) Urine pH 6.0 (5.0-8.0) Ur Specific [place] 1.034 (1.001-1.035) Urine Protein 2+ H (Negative) Urine Glucose (UA) Negative (Negative) Urine Ketones Negative (Negative) Urine Blood Negative (Negative) Urine Nitrite Negative (Negative) Urine Bilirubin Negative (Negative) Urine Urobilinogen 2.0 (<2.0) mg/dL Ur Leukocyte Esterase Moderate H (Negative) Urine RBC 4 (0-5) /hpf Urine WBC 38 H (0-5) /hpf Ur Squamous Epith Cells 2 (0-4) /hpf Urine Bacteria Occasional H (None) /hpf Urine Mucus Many H (None) /hpf Disposition Clinical Impression: Kidney stone on right side Disposition: HOME SELF-CARE Condition: Good Instructions (If sedation given, give patient instructions): Urinary Tract Infection in Men (ED) Additional Instructions: Please return to the Emergency Department if symptoms worsen or any other concerns. Is patient prescribed a controlled substance at d/c from ED?: No Referrals: Shakira Gomez [Primary Care Provider] - 1-2 days Time of Disposition: 12:17
[2022-10-07 10:52] LABS: Basophils % (A) 0 %; Eosinophils # (A) 0.1 k/uL (0-0.7); Eosinophils % (A) 1 %; HCT 43.4 % (39.0-53.0); HGB 15.5 gm/dL (13.0-17.5); Lymphocytes # (A) 2.1 k/uL (1.0-4.8); Lymphocytes % (A) 27 %; MCH 33.1 pg (25.0-35.0); MCHC 35.7 g/dL (31.0-37.0); MCV 92.8 fL (80.0-100.0); Monocytes # (A) 0.3 k/uL (0-1.0); Monocytes % (A) 4 %; Neutrophils % (A) 66 %; Platelet Count 211 k/uL (150-450); RBC 4.68 m/uL (4.30-5.90); RDW 14.1 % (11.5-15.5); WBC 7.6 k/uL (3.8-10.6)
[2022-10-07 11:06] LABS: Appearance,Urine Cloudy (Clear); Bacteria,Urine Occasional /hpf; Bilirubin,Urine Negative (Negative); Blood,Urine Negative (Negative); Color,Urine Light Red; Glucose,Urine (UA) Negative (Negative); Ketones,Urine Negative (Negative); Leukocyte Esterase,Urine Moderate (Negative); Mucus,Urine Many /hpf; Nitrite,Urine Negative (Negative); Protein,Urine 2+ (Negative); RBC,Urine 4 /hpf (0-5); Specific Gravity,Urine 1.034 (1.001-1.035); Squamous Epithelial Cell,Urine 2 /hpf (0-4); WBC,Urine 38 /hpf (0-5)
[2022-10-07 11:08] LABS: ALT 14 U/L (4-49); AST 22 U/L (17-59); African American GFR (CKD) >90 (>60 ml/min/1.73 sqM); Albumin 5.3 g/dL (3.5-5.0); Alkaline Phosphatase 101 U/L (38-126); Amylase 65 U/L (30-110); Anion Gap 12 mmol/L; Blood Urea Nitrogen 12 mg/dL (9-20); Carbon Dioxide 23 mmol/L (22-30); Chloride 105 mmol/L (98-107); Glucose 118 mg/dL (74-99); Lipase 152 U/L (23-300); Non-African American GFR(CKD) >90 (>60 ml/min/1.73 sqM); Potassium 3.9 mmol/L (3.5-5.1); Sodium 140 mmol/L (137-145); Total Bilirubin 0.7 mg/dL (0.2-1.3); Total Protein 9.6 g/dL (6.3-8.2)
[2022-10-07] MEDS ORDERED: ONDANSETRON 4 MG/2 ML VIAL IVP PRN (11:34)
[2022-10-07] MEDS ORDERED: MORPHINE SULFATE 4 MG/ML SYRINGE IVP STA (11:34)
--- NOTE | 2022-10-07 11:44 | CT ---
EXAMINATION TYPE: CT abdomen pelvis wo con DATE OF EXAM: 10/07/2022 COMPARISON: 03/07/2012 HISTORY: Rt flank pain radiating into groin. Decreased urine output. Hx renal stones CT DLP: 664.4 mGycm Examination of the solid and hollow viscera is limited given the lack of contrast. FINDINGS: LUNG BASES: No evidence for nodule. No evidence for infiltrate. LIVER/GB: The gallbladder is unremarkable. No space-occupying hepatic lesion. PANCREAS: No pancreatic mass identified. No inflammatory process seen. SPLEEN: No evidence for splenomegaly. No intrasplenic lesions seen. ADRENALS: No adrenal nodules identified. No evidence for thickening. KIDNEYS: No evidence for renal mass. There is a nonobstructing 2 mm calculus right kidney at its mid pole region. 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 No obstructing calculus is seen. No hydronephrosis. BOWEL: Appendix has a normal appearance. No evidence of bowel obstruction. No inflammatory process. Lymph nodes: No evidence for adenopathy greater than 1 cm. Abdominal aorta: Atheromatous changes seen. No evidence for aneurysm. Genital organs: No significant abnormality. Other: No significant abnormality. IMPRESSION: There is a nonobstructing 2 mm calculus right kidney at its mid pole region. 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 No obstructing calculus is seen.
[2022-10-07 12:37] VITALS: BP 130/96; PULSE 64
== END 2022-10-07 12:37 | disposition home or self-care (01) ==
LOC: EC 09:51
DX: N20.0 Calculus of kidney (principal); J45.909 Unspecified asthma, uncomplicated; F17.200 Nicotine dependence, unspecified, uncomplicated; F12.90 Cannabis use, unspecified, uncomplicated; F15.90 Other stimulant use, unspecified, uncomplicated
CPT/HCPCS: 36415; 80053; 82150; 83690; 85025; 81001; 74176; 99284; 96374; 96375; 96361; J2270; J1885

== ENCOUNTER 2022-10-08 15:06 | Emergency (ER) | payer OTHER ==
[2022-10-08 15:40] VITALS: TEMP 97.9
[2022-10-08] MEDS ORDERED: SODIUM CHLORIDE 0.9% 1,000 ML IV STA (15:45)
[2022-10-08] MEDS ORDERED: ONDANSETRON 4 MG/2 ML VIAL IVP STA (15:45)
--- NOTE | 2022-10-08 15:58 | ED ---
Nausea/Vomiting/Diarrhea HPI - General Chief complaint: Nausea/Vomiting/Diarrhea Stated complaint: vomiting Time Seen by Provider: 10/08/22 15:43 Source: patient, RN notes reviewed, old records reviewed Mode of arrival: ambulatory Limitations: no limitations - History of Present Illness Initial comments: This is a 37-year-old male to the ER he presents today for evaluation not feeling well feverish weakness. Some abdominal pain. Nausea and vomiting. Patient has also history of recent fever. Patient does have history of HIV. Otherwise no travel history no sick contacts no cough congestion sore throat or other complaints MD complaint: nausea, vomiting, other (Dysuria) -: days(s) Associated Abdominal Pain: Yes Severity: mild Severity scale (1-10): 1 Quality: aching Consistency: intermittent Improves with: none Context: recent antibiotic use Associated Symptoms: denies other symptoms - Related Data Home Medications Medication Instructions Recorded Confirmed Bictegrav/Emtricit/Tenofov Ala 1 tab PO DAILY 06/20/22 10/08/22 [Biktarvy 50-200-25 mg Tablet] Albuterol Sulfate [Ventolin HFA] 1 - 2 puff INHALATION RT-QID PRN 10/08/22 10/08/22 Budesonide-Formot 160-4.5 Mcg 2 puff INHALATION RT-BID 10/08/22 10/08/22 [Symbicort 160-4.5 Mcg Inhaler] Venlafaxine HCl [Effexor XR] 150 mg PO DAILY 10/08/22 10/08/22 Previous Rx's Medication Instructions Recorded OLANZapine [ZyPREXA] 10 mg PO HS tab 06/25/22 Doxycycline [Vibramycin] 50 mg PO Q12HR 10 Days #20 capsule 10/08/22 Cephalexin [Keflex] 500 mg PO QID #40 cap 10/11/22 Allergies Allergy/AdvReac Type Severity Reaction Status Date / Time No Known Allergies Allergy Verified 10/11/22 12:56 Review of Systems ROS Statement: Those systems with pertinent positive or pertinent negative responses have been documented in the HPI. ROS Other: All systems not noted in ROS Statement are negative. Past Medical History Past Medical History: Asthma Additional Past Medical History / Comment(s): Kidney stones History of Any Multi-Drug Resistant Organisms: None Reported Past Surgical History: No Surgical Hx Reported Past Psychological History: Anxiety, Depression, Schizophrenia Smoking Status: Current every day smoker Past Alcohol Use History: None Reported Past Drug Use History: Marijuana, Methamphetamine General Exam Limitations: no limitations General appearance: alert, in no apparent distress Head exam: Present: atraumatic, normocephalic, normal inspection Eye exam: Present: normal appearance, PERRL, EOMI. Absent: scleral icterus, conjunctival injection, periorbital swelling ENT exam: Present: normal exam, mucous membranes moist Neck exam: Present: normal inspection. Absent: tenderness, meningismus, lymphadenopathy Respiratory exam: Present: normal lung sounds bilaterally. Absent: respiratory distress, wheezes, rales, rhonchi, stridor Cardiovascular Exam: Present: regular rate, normal rhythm, normal heart sounds. Absent: systolic murmur, diastolic murmur, rubs, gallop, clicks GI/Abdominal exam: Present: soft, normal bowel sounds. Absent: distended, tenderness, guarding, rebound, rigid Extremities exam: Present: normal inspection, full ROM, normal capillary refill. Absent: tenderness, pedal edema, joint swelling, calf tenderness Back exam: Present: normal inspection Neurological exam: Present: alert, oriented X3, CN II-XII intact Psychiatric exam: Present: normal affect, normal mood Skin exam: Present: warm, dry, intact, normal color. Absent: rash Course Vital Signs 10/08/22 10/08/22 15:38 19:28 Temperature 97.9 F Pulse Rate 75 63 Respiratory 20 16 Rate Blood Pressure 135/93 127/84 O2 Sat by Pulse 100 98 Oximetry - Reevaluation(s) Reevaluation #1: 10/08/22 23:01 Medical record is reviewed Reevaluation #2: 10/08/22 23:01 Patient feels much improved here in the ER, asking for discharge Reevaluation #3: 10/08/22 23:01 Patient informed results questions answered Reevaluation #4: 10/08/22 23:01 Was pt. sent in by a medical professional or institution ([facility], BLOW MOLDING MACHINE TENDER, urgent care, hospital, or shelter...) When possible be specific @ -no Did you speak to anyone other than the patient for history (EMS, parent, family, police, friend...)? What history was obtained from this source @ -no Did you review nursing and triage notes (agree or disagree)? Why? @ -agree Are old charts reviewed (outside hosp., previous admission, EMS record, old EKG, old radiological studies, urgent care reports/EKG's, shelter records)? Report findings @ -yes Differential Diagnosis (chest pain, altered mental status, abdominal pain women, abdominal pain men, vaginal bleeding, weakness, fever, dyspnea, syncope, headache, dizziness, GI bleed, back pain, seizure, CVA, palpatations, mental health, musculoskeletal)? @ -prior EKG interpreted by me (3pts min.). @ -yes X-rays interpreted by me (1pt min.). @ -no CT interpreted by me (1pt min.). @ -no U/S interpreted by me (1pt. min.). @ -no What testing was considered but not performed or refused? (CT, X-rays, U/S, labs)? Why? @ -none What meds were considered but not given or refused? Why? @ -none Did you discuss the management of the patient with other professionals (professionals i.e. , PA, BLOW MOLDING MACHINE TENDER, lab, RT, psych nurse, social staff worker, curriculum director, teacher, sheriffs officer, case advocate)? Give summary @ -no Was smoking cessation discussed for >3mins.? @ -no Was critical care preformed (if so, how long)? @ -no Were there social determinants of health that impacted care today? How? (H omelessness, low income, unemployed, alcoholism, drug addiction, transportation, low edu. Level, literacy, decrease access to med. care, prison, rehab)? @ -none Was there de-escalation of care discussed even if they declined (Discuss DNR or withdrawal of care, Hospice)? DNR status @ -no What co-morbidities impacted this encounter? (DM, HTN, Smoking, COPD, CAD, Cancer, CVA, ARF, Chemo, Hep., AIDS, mental health diagnosis, sleep apnea, morbid obesity)? @ -none Was patient admitted / discharged? Hospital course, mention meds given and route, prescriptions, significant lab abnormalities, going to OR and other pertinent info. @ - 37 male to the emergency department today for evaluation with underlying history of HIV coming in for fever today. Patient does have urinary tract infection, urethritis patient treated with antibiotics and cultured and can be discharged home Discharge Undiagnosed new problem with uncertain prognosis? @ -no Drug Therapy requiring intensive monitoring for toxicity (Heparin, Nitro, Insulin, Cardizem)? @ -no Were any procedures done? @ -no Diagnosis/symptom? @ -UTI Acute, or Chronic, or Acute on Chronic? @ -Acute Uncomplicated (without systemic symptoms) or Complicated (systemic symptoms)? @ -Complicated Side effects of treatment? @ -no Exacerbation, Progression, or Severe Exacerbation? @ -exacerbation Poses a threat to life or bodily function? How? (Chest pain, [place], [place], pneumonia, PE, COPD, DKA, ARF, appy, cholecystitis, CVA, Diverticulitis, Homicidal, Suicidal, threat to staff... and all critical care pts) @ -yes with fever and sepsis Reevaluation #5: 10/08/22 23:01 Differential Fever: Pneumonia, viral URI, endocarditis, myocarditis, pericarditis, otitis, sinusitis, peritonsillar Abscess, retropharyngeal Abscess, epiglottitis, peritonitis, appendicitis, [place] cystitis, diverticulitis, hepatitis, colitis, UTI, PID, TOA, pyelonephritis, prostatitis, epididymitis, meningitis, encephalitis, pulmonary embolism, CVA, thyroid storm, pancreatitis, adrenal crisis, cavernous sinus thrombosis, this is not meant to be an all-inclusive list. Medical Decision Making - Medical Decision Making 29 male DF for evaluation with underlying history of HIV coming in for fever today. Patient does have urinary tract infection, urethritis patient treated with antibiotics and cultured and can be discharged home - Lab Data Result diagrams: 10/08/22 17:07 10/08/22 17:07 Lab Results 10/08/22 10/08/22 10/08/22 Range/Units 17:07 17:07 17:07 WBC 9.5 (3.8-10.6) k/uL RBC 4.66 (4.30-5.90) m/uL Hgb 15.0 (13.0-17.5) gm/dL Hct 43.2 (39.0-53.0) % MCV 92.8 (80.0-100.0) fL MCH 32.3 (25.0-35.0) pg MCHC 34.8 (31.0-37.0) g/dL RDW 14.0 (11.5-15.5) % Plt Count 183 (150-450) k/uL MPV 7.9 Neutrophils % 81 % Lymphocytes % 14 % Monocytes % 3 % Eosinophils % 1 % Basophils % 0 % Neutrophils # 7.7 (1.3-7.7) k/uL Lymphocytes # 1.4 (1.0-4.8) k/uL Monocytes # 0.3 (0-1.0) k/uL Eosinophils # 0.0 (0-0.7) k/uL Basophils # 0.0 (0-0.2) k/uL PT 9.8 (9.0-12.0) sec INR 0.9 (<1.2) APTT 21.7 L (22.0-30.0) sec Sodium 136 L (137-145) mmol/L Potassium 3.9 (3.5-5.1) mmol/L Chloride 98 (98-107) mmol/L Carbon Dioxide 24 (22-30) mmol/L Anion Gap 14 mmol/L BUN 16 (9-20) mg/dL Creatinine 0.82 (0.66-1.25) mg/dL Est GFR (CKD-EPI)AfAm >90 (>60 ml/min/1.73 sqM) Est GFR (CKD-EPI)NonAf >90 (>60 ml/min/1.73 sqM) Glucose 76 (74-99) mg/dL Calcium 9.6 (8.4-10.2) mg/dL Phosphorus 3.9 (2.5-4.5) mg/dL Magnesium 1.7 (1.6-2.3) mg/dL Total Bilirubin 0.7 (0.2-1.3) mg/dL AST 22 (17-59) U/L ALT 13 (4-49) U/L Alkaline Phosphatase 84 (38-126) U/L Troponin I (0.000-0.034) ng/mL Total Protein 9.0 H (6.3-8.2) g/dL Albumin 5.0 (3.5-5.0) g/dL Lipase 93 (23-300) U/L Urine Color Urine Appearance (Clear) Urine pH (5.0-8.0) Ur Specific [place] (1.001-1.035) Urine Protein (Negative) Urine Glucose (UA) (Negative) Urine Ketones (Negative) Urine Blood (Negative) Urine Nitrite (Negative) Urine Bilirubin (Negative) Urine Urobilinogen (<2.0) mg/dL Ur Leukocyte Esterase (Negative) Urine RBC (0-5) /hpf Urine WBC (0-5) /hpf Ur Squamous Epith Cells (0-4) /hpf Urine Bacteria (None) /hpf Hyaline Casts (0-2) /lpf Urine Mucus (None) /hpf 10/08/22 10/08/22 Range/Units 17:07 17:56 WBC (3.8-10.6) k/uL RBC (4.30-5.90) m/uL Hgb (13.0-17.5) gm/dL Hct (39.0-53.0) % MCV (80.0-100.0) fL MCH (25.0-35.0) pg MCHC (31.0-37.0) g/dL RDW (11.5-15.5) % Plt Count (150-450) k/uL MPV Neutrophils % % Lymphocytes % % Monocytes % % Eosinophils % % Basophils % % Neutrophils # (1.3-7.7) k/uL Lymphocytes # (1.0-4.8) k/uL Monocytes # (0-1.0) k/uL Eosinophils # (0-0.7) k/uL Basophils # (0-0.2) k/uL PT (9.0-12.0) sec INR (<1.2) APTT (22.0-30.0) sec Sodium (137-145) mmol/L Potassium (3.5-5.1) mmol/L Chloride (98-107) mmol/L Carbon Dioxide (22-30) mmol/L Anion Gap mmol/L BUN (9-20) mg/dL Creatinine (0.66-1.25) mg/dL Est GFR (CKD-EPI)AfAm (>60 ml/min/1.73 sqM) Est GFR (CKD-EPI)NonAf (>60 ml/min/1.73 sqM) Glucose (74-99) mg/dL Calcium (8.4-10.2) mg/dL Phosphorus (2.5-4.5) mg/dL Magnesium (1.6-2.3) mg/dL Total Bilirubin (0.2-1.3) mg/dL AST (17-59) U/L ALT (4-49) U/L Alkaline Phosphatase (38-126) U/L Troponin I 0.013 (0.000-0.034) ng/mL Total Protein (6.3-8.2) g/dL Albumin (3.5-5.0) g/dL Lipase (23-300) U/L Urine Color Yellow Urine Appearance Cloudy (Clear) Urine pH 5.5 (5.0-8.0) Ur Specific [place] 1.026 (1.001-1.035) Urine Protein 1+ H (Negative) Urine Glucose (UA) Negative (Negative) Urine Ketones Trace H (Negative) Urine Blood Trace H (Negative) Urine Nitrite Positive (Negative) Urine Bilirubin Negative (Negative) Urine Urobilinogen <2.0 (<2.0) mg/dL Ur Leukocyte Esterase Large H (Negative) Urine RBC 2 (0-5) /hpf Urine WBC 51 H (0-5) /hpf Ur Squamous Epith Cells 3 (0-4) /hpf Urine Bacteria Many H (None) /hpf Hyaline Casts 7 H (0-2) /lpf Urine Mucus Many H (None) /hpf - EKG Data -: EKG Interpreted by Me (EKG is sinus 60 [place] 181 QRS 81 QTC 392) Disposition Clinical Impression: Dehydration, Gastroenteritis, Nausea & vomiting, UTI (urinary tract infection) Disposition: HOME SELF-CARE Condition: Good Instructions (If sedation given, give patient instructions): Urinary Tract Infection in Men (ED) Prescriptions: Doxycycline [Vibramycin] 50 mg PO Q12HR 10 Days #20 capsule Is patient prescribed a controlled substance at d/c from ED?: No Referrals: Hansel Penaloza MD [STAFF PHYSICIAN] - 1-2 days Time of Disposition: 17:30
[2022-10-08] MEDS ORDERED: MORPHINE SULFATE 4 MG/ML SYRINGE IVP STA (15:59)
[2022-10-08] MEDS ORDERED: DICYCLOMINE 10 MG/ML 2 ML AMP IM STA (15:59)
[2022-10-08 17:15] LABS: Basophils % (A) 0 %; Eosinophils % (A) 1 %; HCT 43.2 % (39.0-53.0); Lymphocytes # (A) 1.4 k/uL (1.0-4.8); Lymphocytes % (A) 14 %; MCH 32.3 pg (25.0-35.0); MCHC 34.8 g/dL (31.0-37.0); MCV 92.8 fL (80.0-100.0); Mean Platelet Volume 7.9; Monocytes # (A) 0.3 k/uL (0-1.0); Monocytes % (A) 3 %; Neutrophils # (A) 7.7 k/uL (1.3-7.7); Neutrophils % (A) 81 %; Platelet Count 183 k/uL (150-450); RBC 4.66 m/uL (4.30-5.90); WBC 9.5 k/uL (3.8-10.6)
[2022-10-08 17:29] LABS: ALT 13 U/L (4-49); AST 22 U/L (17-59); African American GFR (CKD) >90 (>60 ml/min/1.73 sqM); Alkaline Phosphatase 84 U/L (38-126); Anion Gap 14 mmol/L; Blood Urea Nitrogen 16 mg/dL (9-20); Calcium 9.6 mg/dL (8.4-10.2); Carbon Dioxide 24 mmol/L (22-30); Chloride 98 mmol/L (98-107); Glucose 76 mg/dL (74-99); Lipase 93 U/L (23-300); Magnesium 1.7 mg/dL (1.6-2.3); Non-African American GFR(CKD) >90 (>60 ml/min/1.73 sqM); Phosphorus 3.9 mg/dL (2.5-4.5); Potassium 3.9 mmol/L (3.5-5.1); Sodium 136 mmol/L (137-145); Total Bilirubin 0.7 mg/dL (0.2-1.3)
[2022-10-08 17:34] LABS: INR 0.9 (<1.2); Prothrombin Time 9.8 sec (9.0-12.0)
[2022-10-08 17:39] LABS: Partial Thromboplastin Time 21.7 sec (22.0-30.0)
[2022-10-08 18:09] LABS: Appearance,Urine Cloudy (Clear); Bacteria,Urine Many /hpf; Bilirubin,Urine Negative (Negative); Blood,Urine Trace (Negative); Color,Urine Yellow; Glucose,Urine (UA) Negative (Negative); Hyaline Casts,Urine 7 /lpf (0-2); Ketones,Urine Trace (Negative); Leukocyte Esterase,Urine Large (Negative); Mucus,Urine Many /hpf; Nitrite,Urine Positive (Negative); PH, Urine 5.5 (5.0-8.0); Protein,Urine 1+ (Negative); RBC,Urine 2 /hpf (0-5); Specific Gravity,Urine 1.026 (1.001-1.035); Squamous Epithelial Cell,Urine 3 /hpf (0-4); Urobilinogen,Urine <2.0 mg/dL (<2.0); WBC,Urine 51 /hpf (0-5)
[2022-10-08 19:36] VITALS: BP 127/84; PULSE 63; RESP 16
[2022-10-08] MEDS ORDERED: cefTRIAXone IN SWFI 1,000 MG/10 ML SYRINGE IVP STA (19:38)
[2022-10-08] MEDS ORDERED: AZITHROMYCIN 500 MG TAB PO STA (19:38)
[2022-10-08] MEDS ORDERED: DOXYCYCLINE 50 MG CAP PO STA (19:38)
== END 2022-10-08 20:29 | disposition home or self-care (01) ==
LOC: EC 15:06
DX: K52.9 Noninfective gastroenteritis and colitis, unspecified (principal); N39.0 Urinary tract infection, site not specified; E86.0 Dehydration; R11.2 Nausea with vomiting, unspecified; J45.909 Unspecified asthma, uncomplicated; F32.A Depression, unspecified; F41.9 Anxiety disorder, unspecified; F17.200 Nicotine dependence, unspecified, uncomplicated; F12.90 Cannabis use, unspecified, uncomplicated; Z79.51 Long term (current) use of inhaled steroids; Z79.899 Other long term (current) drug therapy; Z21 Asymptomatic human immunodeficiency virus [HIV] infection status
CPT/HCPCS: 36415; 93005; 80053; 83690; 83735; 84100; 84484; 85025; 85610; 85730; 81001; 99284; 96372; 96374; 96375 ×2; 96361 ×2; J2270; J0500; J2405; J0696

== ENCOUNTER 2022-10-11 12:53 | Emergency (ER) | payer OTHER ==
[2022-10-11 12:56] VITALS: RESP 18
[2022-10-11] MEDS ORDERED: SODIUM CHLORIDE 0.9% 1,000 ML IV STA (13:10)
[2022-10-11] MEDS ORDERED: FAMOTIDINE 20 MG/2 ML VIAL IV STA (13:10)
[2022-10-11] MEDS ORDERED: KETOROLAC 15 MG/ML 1 ML VIAL IVP STA (13:10)
[2022-10-11] MEDS ORDERED: METOCLOPRAMIDE 5 MG/ML 2 ML VIAL IVP STA (13:10)
--- NOTE | 2022-10-11 13:12 | ED ---
General Adult HPI - General Chief complaint: Abdominal Pain Stated complaint: Abd Pain Time Seen by Provider: 10/11/22 12:58 Source: patient, RN notes reviewed, old records reviewed Mode of arrival: ambulatory Limitations: no limitations - History of Present Illness Initial comments: Patient is a pleasant 37-year-old male presenting to the emergency Department with right flank pain. Patient states he was in the emergency department a few days ago diagnosed with 2 mm kidney stone. Patient has been having some discomfort the past day or 2 right flank. Patient has decreased appetite. No vomiting. No fever. Patient has no some mild hematuria. - Related Data Home Medications Medication Instructions Recorded Confirmed Bictegrav/Emtricit/Tenofov Ala 1 tab PO DAILY 06/20/22 10/08/22 [Biktarvy 50-200-25 mg Tablet] Albuterol Sulfate [Ventolin HFA] 1 - 2 puff INHALATION RT-QID PRN 10/08/22 10/08/22 Budesonide-Formot 160-4.5 Mcg 2 puff INHALATION RT-BID 10/08/22 10/08/22 [Symbicort 160-4.5 Mcg Inhaler] Venlafaxine HCl [Effexor XR] 150 mg PO DAILY 10/08/22 10/08/22 Previous Rx's Medication Instructions Recorded OLANZapine [ZyPREXA] 10 mg PO HS tab 06/25/22 Doxycycline [Vibramycin] 50 mg PO Q12HR 10 Days #20 capsule 10/08/22 Cephalexin [Keflex] 500 mg PO QID #40 cap 10/11/22 Allergies Allergy/AdvReac Type Severity Reaction Status Date / Time No Known Allergies Allergy Verified 10/11/22 12:56 Review of Systems ROS Statement: Those systems with pertinent positive or pertinent negative responses have been documented in the HPI. ROS Other: All systems not noted in ROS Statement are negative. Constitutional: Denies: fever Eyes: Denies: eye pain ENT: Denies: ear pain Respiratory: Denies: cough Cardiovascular: Denies: chest pain Endocrine: Denies: fatigue Gastrointestinal: Reports: as per HPI, abdominal pain, nausea. Denies: vomiting Genitourinary: Reports: as per HPI, hematuria. Denies: dysuria Musculoskeletal: Denies: back pain Past Medical History Past Medical History: Asthma Additional Past Medical History / Comment(s): Kidney stones History of Any Multi-Drug Resistant Organisms: None Reported Past Surgical History: No Surgical Hx Reported Additional Past Surgical History / Comment(s): HIV Past Psychological History: Anxiety, Depression, Schizophrenia Smoking Status: Current every day smoker Past Alcohol Use History: None Reported Past Drug Use History: Marijuana, Methamphetamine General Exam Limitations: no limitations General appearance: alert, in no apparent distress Head exam: Present: normocephalic Eye exam: Present: normal appearance Neck exam: Present: normal inspection Respiratory exam: Present: normal lung sounds bilaterally Cardiovascular Exam: Present: regular rate, normal rhythm Expanded Peripheral pulses: 2+: Dorsalis Pedis (R), Dorsalis Pedis (L) GI/Abdominal exam: Present: soft, tenderness (Mild right flank), normal bowel sounds. Absent: distended, guarding, rebound, rigid, pulsatile mass Extremities exam: Present: normal inspection Neurological exam: Present: alert Psychiatric exam: Present: normal affect, normal mood Skin exam: Present: normal color Course Vital Signs 10/11/22 10/11/22 12:54 14:51 Temperature 98.4 F 98.7 F Pulse Rate 122 H 76 Respiratory 18 18 Rate Blood Pressure 121/80 129/97 O2 Sat by Pulse 99 100 Oximetry Medical Decision Making - Medical Decision Making Was pt. sent in by a medical professional or institution (, PA, ERGONOMICS ENGINEER, urgent care, hospital, or senior living...) When possible be specific @ -No Did you speak to anyone other than the patient for history (EMS, parent, family, police, friend...)? What history was obtained from this source @ -No Did you review nursing and triage notes (agree or disagree)? Why? @ -I reviewed and agree with nursing and triage notes Were old charts reviewed (outside hosp., previous admission, EMS record, old EKG, old radiological studies, urgent care reports/EKG's, senior living records)? Report findings @ -Previous ER visit and CT reports reviewed Differential Diagnosis (chest pain, altered mental status, abdominal pain women, abdominal pain men, vaginal bleeding, weakness, fever, dyspnea, syncope, headache, dizziness, GI bleed, back pain, seizure, CVA, palpatations, mental health, musculoskeletal)? @ -Differential Abdominal Pain Men: Appendicitis, cholecystitis, diverticulosis, ischemic bowel, pancreatitis, hepatitis, UTI, gastroenteritis, AAA, incarcerated hernia, bowel obstruction, constipation, inflammatory bowel, hepatitis, peptic ulcer disease, splenic infarction, perforated viscus, testicular torsion, this is not meant to be an all-inclusive list EKG interpreted by me (3pts min.). @ -As above X-rays interpreted by me (1pt min.). @ -Abdominal x-ray shows no acute process CT interpreted by me (1pt min.). @ -Report reviewed U/S interpreted by me (1pt. min.). @ -None done What testing was considered but not performed or refused? (CT, X-rays, U/S, labs)? Why? @ -None What meds were considered but not given or refused? Why? @ -None Did you discuss the management of the patient with other professionals (professionals i.e. , PA, ERGONOMICS ENGINEER, lab, RT, psych nurse, social work manager, rn family, teacher, electoral officer, director case management)? Give summary @ -No Was smoking cessation discussed for >3mins.? @ -No Was critical care preformed (if so, how long)? @ -No Were there social determinants of health that impacted care today? How? (Ho melessness, low income, unemployed, alcoholism, drug addiction, transportation, low edu. Level, literacy, decrease access to med. care, correction, rehab)? @ -No Was there de-escalation of care discussed even if they declined (Discuss DNR or withdrawal of care, Hospice)? DNR status @ -No What co-morbidities impacted this encounter? (DM, HTN, Smoking, COPD, CAD, Cancer, CVA, ARF, Chemo, Hep., AIDS, mental health diagnosis, sleep apnea, morbid obesity)? @ -None Was patient admitted / discharged? Hospital course, mention meds given and route, prescriptions, significant lab abnormalities, going to OR and other pertinent info. @ -Patient was reevaluated and still had some discomfort therefore computed tomography scan was ordered. Computed tomography scan with questionable cystitis. Urinalysis with questionable mild urinary tract infection. Patient will be covered with antibiotics for possible mild infection and advised follow- up with primary care physician. Undiagnosed new problem with uncertain prognosis? @ -No Drug Therapy requiring intensive monitoring for toxicity (Heparin, Nitro, Insulin, Cardizem)? @ -No Were any procedures done? @ -No Diagnosis/symptom? @ -Abdominal pain Acute, or Chronic, or Acute on Chronic? @ -Acute Uncomplicated (without systemic symptoms) or Complicated (systemic symptoms)? @ -default Side effects of treatment? @ -No Exacerbation, Progression, or Severe Exacerbation? @ -No Poses a threat to life or bodily function? How? (Chest pain, [place], [place], pneumonia, PE, COPD, DKA, ARF, appy, cholecystitis, CVA, Diverticulitis, Homicidal, Suicidal, threat to staff... and all critical care pts) @ -No - Lab Data Result diagrams: 10/11/22 13:27 10/11/22 13:27 Lab Results 10/11/22 10/11/22 10/11/22 Range/Units 13:27 13:27 13:27 WBC 11.0 H (3.8-10.6) k/uL RBC 4.67 (4.30-5.90) m/uL Hgb 15.3 (13.0-17.5) gm/dL Hct 42.8 (39.0-53.0) % MCV 91.7 (80.0-100.0) fL MCH 32.8 (25.0-35.0) pg MCHC 35.8 (31.0-37.0) g/dL RDW 14.0 (11.5-15.5) % Plt Count 238 (150-450) k/uL MPV 7.9 Neutrophils % 69 % Lymphocytes % 24 % Monocytes % 4 % Eosinophils % 2 % Basophils % 0 % Neutrophils # 7.6 (1.3-7.7) k/uL Lymphocytes # 2.6 (1.0-4.8) k/uL Monocytes # 0.5 (0-1.0) k/uL Eosinophils # 0.2 (0-0.7) k/uL Basophils # 0.0 (0-0.2) k/uL Sodium 141 (137-145) mmol/L Potassium 3.9 (3.5-5.1) mmol/L Chloride 109 H (98-107) mmol/L Carbon Dioxide 18 L (22-30) mmol/L Anion Gap 14 mmol/L BUN 9 (9-20) mg/dL Creatinine 0.87 (0.66-1.25) mg/dL Est GFR (CKD-EPI)AfAm >90 (>60 ml/min/1.73 sqM) Est GFR (CKD-EPI)NonAf >90 (>60 ml/min/1.73 sqM) Glucose 116 H (74-99) mg/dL Calcium 10.0 (8.4-10.2) mg/dL Total Bilirubin 0.5 (0.2-1.3) mg/dL AST 21 (17-59) U/L ALT 11 (4-49) U/L Alkaline Phosphatase 83 (38-126) U/L Total Protein 9.2 H (6.3-8.2) g/dL Albumin 5.0 (3.5-5.0) g/dL Amylase 57 (30-110) U/L Lipase 108 (23-300) U/L Urine Color Light Red Urine Appearance Clear (Clear) Urine pH 6.0 (5.0-8.0) Ur Specific [place] 1.018 (1.001-1.035) Urine Protein 1+ H (Negative) Urine Glucose (UA) Negative (Negative) Urine Ketones Negative (Negative) Urine Blood Negative (Negative) Urine Nitrite Negative (Negative) Urine Bilirubin Negative (Negative) Urine Urobilinogen <2.0 (<2.0) mg/dL Ur Leukocyte Esterase Small H (Negative) Urine RBC 1 (0-5) /hpf Urine WBC 8 H (0-5) /hpf Ur Squamous Epith Cells <1 (0-4) /hpf Hyaline Casts 1 (0-2) /lpf Urine Mucus Few H (None) /hpf Disposition Clinical Impression: Abdominal pain, Cystitis Disposition: HOME SELF-CARE Condition: Stable Instructions (If sedation given, give patient instructions): Abdominal Pain (ED), Urinary Tract Infection in Men (ED) Additional Instructions: Please do follow-up to primary care physician in the next day or 2 for recheck. Return for increased pain, fever, worsening or changing symptoms or other concerns. Prescription has been sent to pharmacy. Prescriptions: Cephalexin [Keflex] 500 mg PO QID #40 cap Is patient prescribed a controlled substance at d/c from ED?: No Referrals: Hansel Penaloza MD [Primary Care Provider] - 1-2 days Time of Disposition: 15:04
[2022-10-11 13:43] LABS: Basophils % (A) 0 %; Eosinophils # (A) 0.2 k/uL (0-0.7); Eosinophils % (A) 2 %; HCT 42.8 % (39.0-53.0); HGB 15.3 gm/dL (13.0-17.5); Lymphocytes # (A) 2.6 k/uL (1.0-4.8); Lymphocytes % (A) 24 %; MCH 32.8 pg (25.0-35.0); MCHC 35.8 g/dL (31.0-37.0); MCV 91.7 fL (80.0-100.0); Mean Platelet Volume 7.9; Monocytes # (A) 0.5 k/uL (0-1.0); Monocytes % (A) 4 %; Neutrophils # (A) 7.6 k/uL (1.3-7.7); Neutrophils % (A) 69 %; Platelet Count 238 k/uL (150-450); RBC 4.67 m/uL (4.30-5.90)
[2022-10-11 13:45] LABS: Appearance,Urine Clear (Clear); Bilirubin,Urine Negative (Negative); Blood,Urine Negative (Negative); Color,Urine Light Red; Glucose,Urine (UA) Negative (Negative); Hyaline Casts,Urine 1 /lpf (0-2); Ketones,Urine Negative (Negative); Leukocyte Esterase,Urine Small (Negative); Mucus,Urine Few /hpf; Nitrite,Urine Negative (Negative); Protein,Urine 1+ (Negative); RBC,Urine 1 /hpf (0-5); Specific Gravity,Urine 1.018 (1.001-1.035); Squamous Epithelial Cell,Urine <1 /hpf (0-4); Urobilinogen,Urine <2.0 mg/dL (<2.0); WBC,Urine 8 /hpf (0-5)
[2022-10-11 13:53] LABS: ALT 11 U/L (4-49); AST 21 U/L (17-59); African American GFR (CKD) >90 (>60 ml/min/1.73 sqM); Alkaline Phosphatase 83 U/L (38-126); Amylase 57 U/L (30-110); Anion Gap 14 mmol/L; Blood Urea Nitrogen 9 mg/dL (9-20); Carbon Dioxide 18 mmol/L (22-30); Chloride 109 mmol/L (98-107); Glucose 116 mg/dL (74-99); Lipase 108 U/L (23-300); Non-African American GFR(CKD) >90 (>60 ml/min/1.73 sqM); Potassium 3.9 mmol/L (3.5-5.1); Sodium 141 mmol/L (137-145); Total Bilirubin 0.5 mg/dL (0.2-1.3); Total Protein 9.2 g/dL (6.3-8.2)
--- NOTE | 2022-10-11 14:05 | XR ---
EXAMINATION TYPE: XR KUB DATE OF EXAM: 10/11/2022 COMPARISON: NONE HISTORY: Pain TECHNIQUE: Single supine KUB image of the abdomen is obtained FINDINGS: Small bowel demonstrates no evidence for dilatation or air fluid levels. Gas and fecal material is seen in non-distended colon. No convincing evidence for pneumoperitoneum. No unusual calcifications. The lung bases are clear. The osseous structures are intact. IMPRESSION: 1. Overall nonobstructive bowel gas pattern.
[2022-10-11] MEDS ORDERED: HYDROmorphone 1 MG/ML 1 ML SYRINGE IVP STA (14:23)
[2022-10-11 14:52] VITALS: BP 129/97; PULSE 76; TEMP 98.7
--- NOTE | 2022-10-11 14:59 | CT ---
EXAMINATION TYPE: CT abdomen pelvis w con CT DLP: 1069.5 mGycm, Automated exposure control for dose reduction was used. DATE OF EXAM: 10/11/2022 2:45 PM COMPARISON: CT abdomen pelvis 10/07/2022 CLINICAL INDICATION:Male, 37 years old with history of abp; abd pain. hx kidney stones TECHNIQUE: Axial CT of the abdomen and pelvis. Sagittal and coronal reformats were created on a [employer] workstation. Contrast used:100ml mL of Isovue 300 with IV Contrast, Oral contrast used: without Oral Contrast FINDINGS: LOWER CHEST: Unremarkable ABDOMEN LIVER: Diffusely hypoattenuating parenchyma. GALLBLADDER AND BILE DUCTS: Unremarkable. PANCREAS: Unremarkable. SPLEEN: Unremarkable. ADRENAL GLANDS: Unremarkable. KIDNEYS AND URETERS: No evidence of hydronephrosis or renal calculus. The ureters are unremarkable. PELVIS BLADDER: Underdistended. REPRODUCTIVE: Unremarkable. ABDOMEN & PELVIS STOMACH AND BOWEL: Stomach and duodenum are unremarkable. Scattered diverticula are noted throughout the colon. No evidence of bowel obstruction. PERITONEUM: No evidence of pneumoperitoneum or free fluid. VASCULATURE: No evidence of aortic aneurysm. MUSCULOSKELETAL: No acute osseous abnormalities LYMPH NODES: No gross evidence for lymphadenopathy. SOFT TISSUE/ABDOMINAL WALL: Small ventral fat-containing umbilical hernia (series 201, image 31). Sma ll fat-containing umbilical hernia. Soft tissues are otherwise normal. IMPRESSION: 1. No evidence for obstructing calculus or hydronephrosis. 2. Circumferential wall thickening of the urinary bladder which may be secondary to underdistention. Correlate with urinalysis findings if concern for acute cystitis.
== END 2022-10-11 15:26 | disposition home or self-care (01) ==
LOC: EC 12:53
DX: N30.90 Cystitis, unspecified without hematuria (principal); J45.909 Unspecified asthma, uncomplicated; F17.200 Nicotine dependence, unspecified, uncomplicated; F12.90 Cannabis use, unspecified, uncomplicated; F15.10 Other stimulant abuse, uncomplicated; Z86.59 Personal history of other mental and behavioral disorders; Z79.51 Long term (current) use of inhaled steroids
CPT/HCPCS: 36415; 80053; 82150; 83690; 85025; 81001; 74018; 74177; 99285; 96374; 96375 ×3; 96361; J2765; J1170; J1885; Q9967

== ENCOUNTER 2022-11-05 14:23 | Emergency (ER) | payer OTHER ==
[2022-11-05] MEDS ORDERED: ACET/COD 300 MG/30 MG STARTER PACK 6 TAB BTL PO STA (15:04)
--- NOTE | 2022-11-05 15:07 | ED ---
General Adult HPI - General Stated complaint: Dental Pain Time Seen by Provider: 11/05/22 15:04 Source: patient, RN notes reviewed Mode of arrival: ambulatory Limitations: no limitations - History of Present Illness Initial comments: 37-year-old male presents emergency Department chief complaint dental pain. Patient states his been having increasing dental pain and swelling. He states that he is planning of dental extractions for multiple dental caries and dental fractures. Patient states that he does not have current close appointment in is concerned about possible infection. - Related Data Home Medications Medication Instructions Recorded Confirmed Bictegrav/Emtricit/Tenofov Ala 1 tab PO DAILY 06/20/22 10/08/22 [Biktarvy 50-200-25 mg Tablet] Albuterol Sulfate [Ventolin HFA] 1 - 2 puff INHALATION RT-QID PRN 10/08/22 10/08/22 Budesonide-Formot 160-4.5 Mcg 2 puff INHALATION RT-BID 10/08/22 10/08/22 [Symbicort 160-4.5 Mcg Inhaler] Venlafaxine HCl [Effexor XR] 150 mg PO DAILY 10/08/22 10/08/22 Previous Rx's Medication Instructions Recorded OLANZapine [ZyPREXA] 10 mg PO HS tab 06/25/22 Doxycycline [Vibramycin] 50 mg PO Q12HR 10 Days #20 capsule 10/08/22 Cephalexin [Keflex] 500 mg PO QID #40 cap 10/11/22 Amoxic-Pot Clav 875-125Mg 1 tab PO Q12HR #20 tab 11/05/22 [Augmentin 875-125] Ibuprofen [Motrin] 600 mg PO Q8HR PRN #20 tab 11/05/22 Allergies Allergy/AdvReac Type Severity Reaction Status Date / Time No Known Allergies Allergy Verified 11/05/22 15:12 Review of Systems ROS Statement: Those systems with pertinent positive or pertinent negative responses have been documented in the HPI. ROS Other: All systems not noted in ROS Statement are negative. Past Medical History Past Medical History: Asthma Additional Past Medical History / Comment(s): Kidney stones History of Any Multi-Drug Resistant Organisms: None Reported Past Surgical History: No Surgical Hx Reported Additional Past Surgical History / Comment(s): HIV Past Psychological History: Anxiety, Depression, Schizophrenia Smoking Status: Current every day smoker Past Alcohol Use History: None Reported Past Drug Use History: Marijuana, Methamphetamine General Exam Limitations: no limitations General appearance: alert, in no apparent distress Head exam: Present: atraumatic, normocephalic, normal inspection Eye exam: Present: normal appearance, PERRL, EOMI. Absent: scleral icterus, conjunctival injection, periorbital swelling ENT exam: Present: mucous membranes moist. Absent: normal oropharynx (Edentulous, no drainable abscess) Neck exam: Present: normal inspection, full ROM. Absent: tenderness, meningismus, lymphadenopathy Respiratory exam: Present: normal lung sounds bilaterally. Absent: respiratory distress, wheezes, rales, rhonchi, stridor Cardiovascular Exam: Present: regular rate, normal rhythm, normal heart sounds. Absent: systolic murmur, diastolic murmur, rubs, gallop, clicks Course Vital Signs 11/05/22 15:10 Temperature 98.1 F Pulse Rate 88 Respiratory 20 Rate Blood Pressure 118/87 O2 Sat by Pulse 99 Oximetry Medical Decision Making - Medical Decision Making Was pt. sent in by a medical professional or institution (TYRA Joseph, RETORT FIREMAN, urgent care, hospital, or long term...) When possible be specific @ -No Did you speak to anyone other than the patient for history (EMS, parent, family, police, friend...)? What history was obtained from this source @ -No Did you review nursing and triage notes (agree or disagree)? Why? @ -I reviewed and agree with nursing and triage notes Were old charts reviewed (outside hosp., previous admission, EMS record, old EKG, old radiological studies, urgent care reports/EKG's, long term records)? Report findings @ -No old charts were reviewed Differential Diagnosis (chest pain, altered mental status, abdominal pain women, abdominal pain men, vaginal bleeding, weakness, fever, dyspnea, syncope, headache, dizziness, GI bleed, back pain, seizure, CVA, palpatations, mental health, musculoskeletal)? @ -Dental infection, dental abscess, tooth fracture EKG interpreted by me (3pts min.). @ -None X-rays interpreted by me (1pt min.). @ -None done CT interpreted by me (1pt min.). @ -None done U/S interpreted by me (1pt. min.). @ -None done What testing was considered but not performed or refused? (CT, X-rays, U/S, labs)? Why? @ -None What meds were considered but not given or refused? Why? @ -None Did you discuss the management of the patient with other professionals (professionals i.e. , PA, RETORT FIREMAN, lab, RT, psych nurse, criminal justice social worker, locomotive repairer diesel, teacher, school resource officer, case sealer)? Give summary @ -No Was smoking cessation discussed for >3mins.? @ -No Was critical care preformed (if so, how long)? @ -No Were there social determinants of health that impacted care today? How? (Homelessness, low income, unemployed, alcoholism, drug addiction, transportation, low edu. Level, literacy, decrease access to med. care, alf, rehab)? @ -No Was there de-escalation of care discussed even if they declined (Discuss DNR or withdrawal of care, Hospice)? DNR status @ -No What co-morbidities impacted this encounter? (DM, HTN, Smoking, COPD, CAD, Cancer, CVA, ARF, Chemo, Hep., AIDS, mental health diagnosis, sleep apnea, morbid obesity)? @ -None Was patient admitted / discharged? Hospital course, mention meds given and route, prescriptions, significant lab abnormalities, going to OR and other pertinent info. @ -[Discharge patient was started on Augmentin for concerns for dental infection patient was provided analgesics. Patient is discharged in stable condition. Undiagnosed new problem with uncertain prognosis? @ -No Drug Therapy requiring intensive monitoring for toxicity (Heparin, Nitro, Insulin, Cardizem)? @ -No Were any procedures done? @ -No Diagnosis/symptom? @ -Dental infection, dental pain Acute, or Chronic, or Acute on Chronic? @ -Acute Uncomplicated (without systemic symptoms) or Complicated (systemic symptoms)? @ -Uncomplicated Side effects of treatment? @ -No Exacerbation, Progression, or Severe Exacerbation? @ -No Poses a threat to life or bodily function? How? (Chest pain, [place], [place], pneumonia, PE, COPD, DKA, ARF, appy, cholecystitis, CVA, Diverticulitis, Homicidal, Suicidal, threat to staff... and all critical care pts) @ -No Disposition Clinical Impression: Dental infection, Pain, dental Disposition: HOME SELF-CARE Condition: Stable Instructions (If sedation given, give patient instructions): Toothache (ED) Additional Instructions: Please return to the Emergency Department if symptoms worsen or any other concerns. Prescriptions: Amoxic-Pot Clav 875-125Mg [Augmentin 875-125] 1 tab PO Q12HR #20 tab Ibuprofen [Motrin] 600 mg PO Q8HR PRN #20 tab PRN Reason: Pain Is patient prescribed a controlled substance at d/c from ED?: No Referrals: Hansel Penaolza MD [Primary Care Provider] - 1-2 days Time of Disposition: 15:06
[2022-11-05 15:13] VITALS: BP 118/87; PULSE 88; RESP 20; TEMP 98.1
== END 2022-11-05 15:44 | disposition home or self-care (01) ==
LOC: EC 14:23
DX: K04.7 Periapical abscess without sinus (principal); J45.909 Unspecified asthma, uncomplicated; F32.A Depression, unspecified; F20.9 Schizophrenia, unspecified; F41.9 Anxiety disorder, unspecified; F17.200 Nicotine dependence, unspecified, uncomplicated; F12.90 Cannabis use, unspecified, uncomplicated; F15.90 Other stimulant use, unspecified, uncomplicated; Z79.51 Long term (current) use of inhaled steroids; Z79.899 Other long term (current) drug therapy
CPT/HCPCS: 99282

== ENCOUNTER 2023-01-26 10:38 | Emergency (ER) | payer MEDICAID, OTHER ==
[2023-01-26] MEDS ORDERED: ACET/COD 300 MG/30 MG STARTER PACK 6 TAB BTL PO STA (10:52)
[2023-01-26] MEDS ORDERED: HYDROcodone/APAP 5-325MG 1 EACH TAB PO STA (10:52)
--- NOTE | 2023-01-26 10:54 | ED ---
General Adult HPI - General Stated complaint: broken/pain teeth Time Seen by Provider: 01/26/23 10:51 Source: patient, RN notes reviewed Mode of arrival: ambulatory Limitations: no limitations - History of Present Illness Initial comments: 37-year-old male presents emergency Department with chief complaint of dental pain, dental infection. Patient has been dealing broken teeth, dental caries. Patient is scheduled to have his teeth started to be removed next month. Patient states that increase pain, fever. - Related Data Home Medications Medication Instructions Recorded Confirmed Bictegrav/Emtricit/Tenofov Ala 1 tab PO DAILY 06/20/22 10/08/22 [Biktarvy 50-200-25 mg Tablet] Albuterol Sulfate [Ventolin HFA] 1 - 2 puff INHALATION RT-QID PRN 10/08/22 10/08/22 Budesonide-Formot 160-4.5 Mcg 2 puff INHALATION RT-BID 10/08/22 10/08/22 [Symbicort 160-4.5 Mcg Inhaler] Venlafaxine HCl [Effexor XR] 150 mg PO DAILY 10/08/22 10/08/22 Previous Rx's Medication Instructions Recorded OLANZapine [ZyPREXA] 10 mg PO HS tab 06/25/22 Doxycycline [Vibramycin] 50 mg PO Q12HR 10 Days #20 capsule 10/08/22 Cephalexin [Keflex] 500 mg PO QID #40 cap 10/11/22 Amoxic-Pot Clav 875-125Mg 1 tab PO Q12HR #20 tab 11/05/22 [Augmentin 875-125] Ibuprofen [Motrin] 600 mg PO Q8HR PRN #20 tab 11/05/22 clindamycin HCL 300 mg PO QID #40 cap 01/26/23 Allergies Allergy/AdvReac Type Severity Reaction Status Date / Time No Known Allergies Allergy Verified 11/05/22 15:12 Review of Systems ROS Statement: Those systems with pertinent positive or pertinent negative responses have been documented in the HPI. ROS Other: All systems not noted in ROS Statement are negative. Past Medical History Past Medical History: Asthma Additional Past Medical History / Comment(s): Kidney stones History of Any Multi-Drug Resistant Organisms: None Reported Past Surgical History: No Surgical Hx Reported Additional Past Surgical History / Comment(s): HIV Past Psychological History: Anxiety, Depression, Schizophrenia Smoking Status: Current every day smoker Past Alcohol Use History: None Reported Past Drug Use History: Marijuana, Methamphetamine General Exam Limitations: no limitations General appearance: alert, in no apparent distress Head exam: Present: atraumatic, normocephalic, normal inspection ENT exam: Present: mucous membranes moist, TM's normal bilaterally. Absent: normal exam, normal oropharynx (Multiple dental caries, dental fractures) Neck exam: Present: normal inspection. Absent: tenderness, meningismus, lymphadenopathy Respiratory exam: Present: normal lung sounds bilaterally. Absent: respiratory distress, wheezes, rales, rhonchi, stridor Cardiovascular Exam: Present: regular rate, normal rhythm, normal heart sounds. Absent: systolic murmur, diastolic murmur, rubs, gallop, clicks Medical Decision Making - Medical Decision Making Was pt. sent in by a medical professional or institution (, PA, [employer]EL[employer], urgent care, hospital, or care home...) When possible be specific @ -No Did you speak to anyone other than the patient for history (EMS, parent, family, police, friend...)? What history was obtained from this source @ -No Did you review nursing and triage notes (agree or disagree)? Why? @ -I reviewed and agree with nursing and triage notes Were old charts reviewed (outside hosp., previous admission, EMS record, old EKG, old radiological studies, urgent care reports/EKG's, care home records)? Report findings @ -No old charts were reviewed Differential Diagnosis (chest pain, altered mental status, abdominal pain women, abdominal pain men, vaginal bleeding, weakness, fever, dyspnea, syncope, headache, dizziness, GI bleed, back pain, seizure, CVA, palpatations, mental health, musculoskeletal)? @ -Dental infection, dental abscess dental fracture EKG interpreted by me (3pts min.). @ -None X-rays interpreted by me (1pt min.). @ -None done CT interpreted by me (1pt min.). @ -None done U/S interpreted by me (1pt. min.). @ -None done What testing was considered but not performed or refused? (CT, X-rays, U/S, labs)? Why? @ -None What meds were considered but not given or refused? Why? @ -None Did you discuss the management of the patient with other professionals (professionals i.e. , PA, [employer] DEVELOPER, lab, RT, psych nurse, public health social worker, motor vehicle salesperson, teacher, chairman and chief executive officer, case advocate)? Give summary @ -No Was smoking cessation discussed for >3mins.? @ -No Was critical care preformed (if so, how long)? @ -No Were there social determinants of health that impacted care today? How? (Homelessness, low income, unemployed, alcoholism, drug addiction, transportation, low edu. Level, literacy, decrease access to med. care, fci, rehab)? @ -No Was there de-escalation of care discussed even if they declined (Discuss DNR or withdrawal of care, Hospice)? DNR status @ -No What co-morbidities impacted this encounter? (DM, HTN, Smoking, COPD, CAD, Cancer, CVA, ARF, Chemo, Hep., AIDS, mental health diagnosis, sleep apnea, morbid obesity)? @ -None Was patient admitted / discharged? Hospital course, mention meds given and route, prescriptions, significant lab abnormalities, going to OR and other pertinent info. @ -Discharge patient has dental infection patient started on clindamycin patient is advised to follow-up with dentist. Undiagnosed new problem with uncertain prognosis? @ -No Drug Therapy requiring intensive monitoring for toxicity (Heparin, Nitro, Insulin, Cardizem)? @ -No Were any procedures done? @ -No Diagnosis/symptom? @ -[Dental infection, dental pain Acute, or Chronic, or Acute on Chronic? @ -[Acute Uncomplicated (without systemic symptoms) or Complicated (systemic symptoms)? @ -Uncomplicated Side effects of treatment? @ -No Exacerbation, Progression, or Severe Exacerbation? @ -No Poses a threat to life or bodily function? How? (Chest pain, USA, NM, pneumonia, PE, COPD, DKA, ARF, appy, cholecystitis, CVA, Diverticulitis, Homicidal, Suicidal, threat to staff... and all critical care pts) @ -No Disposition Clinical Impression: Dental infection Disposition: HOME SELF-CARE Condition: Stable Instructions (If sedation given, give patient instructions): Toothache (ED) Additional Instructions: Please return to the Emergency Department if symptoms worsen or any other concerns. Prescriptions: clindamycin HCL 300 mg PO QID #40 cap Is patient prescribed a controlled substance at d/c from ED?: No Referrals: Hansel Penaloza MD [Primary Care Provider] - 1-2 days Time of Disposition: 10:54
[2023-01-26 11:28] VITALS: BP 132/78; PULSE 88; RESP 18; TEMP 98
== END 2023-01-26 11:16 | disposition home or self-care (01) ==
LOC: EC 10:38
DX: K04.7 Periapical abscess without sinus (principal); K02.9 Dental caries, unspecified; J45.909 Unspecified asthma, uncomplicated; F32.A Depression, unspecified; F41.9 Anxiety disorder, unspecified; F20.9 Schizophrenia, unspecified; F17.200 Nicotine dependence, unspecified, uncomplicated; F12.90 Cannabis use, unspecified, uncomplicated; F15.90 Other stimulant use, unspecified, uncomplicated; Z79.51 Long term (current) use of inhaled steroids; Z79.899 Other long term (current) drug therapy
CPT/HCPCS: 99282

== ENCOUNTER 2023-05-20 15:04 | Emergency (ER) | payer OTHER ==
--- NOTE | 2023-05-20 15:11 | ED ---
ENT HPI - General Chief complaint: Dental/Oral Stated complaint: Dental Infection Time Seen by Provider: 05/20/23 15:10 Source: patient, RN notes reviewed Mode of arrival: ambulatory Limitations: no limitations - History of Present Illness Initial comments: 37-year-old male presents emergency department chief complaint of dental pain. Patient states that he has been experiencing ongoing pain over the past few years patiently fractured one of his left mandibular molars a few days ago. When this fracture occurred patient states that he nonfood when part of the tooth cracked off and he was able to spit it out. He denies shortness of breath. Patient is requesting further antibiotic coverage to minimize because of infection until he is able to see his oral surgeon in the middle of May. Recently finished prescription of amoxicillin. Patient has no other acute complaints. - Related Data Home Medications Medication Instructions Recorded Confirmed Bictegrav/Emtricit/Tenofov Ala 1 tab PO DAILY 06/20/22 10/08/22 [Biktarvy 50-200-25 mg Tablet] Albuterol Sulfate [Ventolin HFA] 1 - 2 puff INHALATION RT-QID PRN 10/08/22 10/08/22 Budesonide-Formot 160-4.5 Mcg 2 puff INHALATION RT-BID 10/08/22 10/08/22 [Symbicort 160-4.5 Mcg Inhaler] Venlafaxine HCl [Effexor XR] 150 mg PO DAILY 10/08/22 10/08/22 Previous Rx's Medication Instructions Recorded OLANZapine [ZyPREXA] 10 mg PO HS tab 06/25/22 Doxycycline [Vibramycin] 50 mg PO Q12HR 10 Days #20 capsule 10/08/22 Cephalexin [Keflex] 500 mg PO QID #40 cap 10/11/22 Amoxic-Pot Clav 875-125Mg 1 tab PO Q12HR #20 tab 11/05/22 [Augmentin 875-125] Ibuprofen [Motrin] 600 mg PO Q8HR PRN #20 tab 11/05/22 clindamycin HCL 300 mg PO QID #40 cap 01/26/23 Amoxicillin 500 mg PO Q8H #30 capsule 05/20/23 Ibuprofen [Motrin] 800 mg PO Q6HR #30 tab 05/20/23 Allergies Allergy/AdvReac Type Severity Reaction Status Date / Time No Known Allergies Allergy Verified 05/20/23 15:07 Review of Systems ROS Statement: Those systems with pertinent positive or pertinent negative responses have been documented in the HPI. ROS Other: All systems not noted in ROS Statement are negative. Past Medical History Past Medical History: Asthma Additional Past Medical History / Comment(s): Kidney stones History of Any Multi-Drug Resistant Organisms: None Reported Past Surgical History: No Surgical Hx Reported Additional Past Surgical History / Comment(s): HIV Past Psychological History: Anxiety, Depression, Schizophrenia Smoking Status: Current every day smoker Past Alcohol Use History: None Reported Past Drug Use History: Marijuana, Methamphetamine General Exam Limitations: no limitations General appearance: alert, in no apparent distress Head exam: Present: atraumatic, normocephalic, normal inspection Eye exam: Present: normal appearance, PERRL, EOMI. Absent: scleral icterus, conjunctival injection, periorbital swelling Expanded Teeth exam: Present: dental caries, other (numerous areas of dental fractures, missing teeth, dental caries.) Throat exam: normal inspection. negative: tonsillar erythema, tonsillomegaly Neck exam: Present: normal inspection. Absent: tenderness, meningismus, lymphadenopathy Respiratory exam: Present: normal lung sounds bilaterally. Absent: respiratory distress, wheezes, rales, rhonchi, stridor Cardiovascular Exam: Present: regular rate, normal rhythm, normal heart sounds. Absent: systolic murmur, diastolic murmur, rubs, gallop, clicks GI/Abdominal exam: Present: soft, normal bowel sounds. Absent: distended, tenderness, guarding, rebound, rigid Extremities exam: Present: normal inspection, full ROM, normal capillary refill. Absent: tenderness, pedal edema, joint swelling, calf tenderness Back exam: Present: normal inspection Neurological exam: Present: alert, oriented X3, CN II-XII intact Psychiatric exam: Present: normal affect, normal mood Skin exam: Present: warm, dry, intact, normal color. Absent: rash Course Vital Signs 05/20/23 15:06 Temperature 98.1 F Pulse Rate 111 H Respiratory 18 Rate Blood Pressure 133/93 O2 Sat by Pulse 99 Oximetry Medical Decision Making - Medical Decision Making Was pt. sent in by a medical professional or institution (, PA, [employer], urgent care, hospital, or snf...) When possible be specific @ -No Did you speak to anyone other than the patient for history (EMS, parent, family, police, friend...)? What history was obtained from this source @ -No Did you review nursing and triage notes (agree or disagree)? Why? @ -I reviewed and agree with nursing and triage notes Were old charts reviewed (outside hosp., previous admission, EMS record, old EKG, old radiological studies, urgent care reports/EKG's, snf records)? Report findings @ -No old charts were reviewed Differential Diagnosis (chest pain, altered mental status, abdominal pain women, abdominal pain men, vaginal bleeding, weakness, fever, dyspnea, syncope, headache, dizziness, GI bleed, back pain, seizure, CVA, palpatations, mental health, musculoskeletal)? @ -Dental pain, dental abscess, dental fracture, dental caries, pulpitis, gingivitis EKG interpreted by me (3pts min.). @ -None X-rays interpreted by me (1pt min.). @ -None done CT interpreted by me (1pt min.). @ -None done U/S interpreted by me (1pt. min.). @ -None done What testing was considered but not performed or refused? (CT, X-rays, U/S, labs)? Why? @ -None What meds were considered but not given or refused? Why? @ -None Did you discuss the management of the patient with other professionals (professionals i.e. , PA, [employer], lab, RT, psych nurse, clinical social worker, bleach boiler puller, teacher, airconditioning drafting officer, watch case polisher)? Give summary @ -No Was smoking cessation discussed for >3mins.? @ -No Was critical care preformed (if so, how long)? @ -No Were there social determinants of health that impacted care today? How? (Homel essness, low income, unemployed, alcoholism, drug addiction, transportation, low edu. Level, literacy, decrease access to med. care, senior care, rehab)? @ -No Was there de-escalation of care discussed even if they declined (Discuss DNR or withdrawal of care, Hospice)? DNR status @ -No What co-morbidities impacted this encounter? (DM, HTN, Smoking, COPD, CAD, Cancer, CVA, ARF, Chemo, Hep., AIDS, mental health diagnosis, sleep apnea, morbid obesity)? @ -None Was patient admitted / discharged? Hospital course, mention meds given and route, prescriptions, significant lab abnormalities, going to OR and other pertinent info. @ -Discharged. 37-year-old male with chief complaint of dental pain. Visual examination of the patient's dentition is overall poor dentition over all areas of the mouth multiple dental caries and dental fractures. No acute signs of dental abscess were noted. Patient has moderate to severe pain over the right mandibular molars and the left maxillary molars. Patient was given 1 g tablet Tylenol for pain relief. Patient was discharged home on amoxicillin, given Motrin 800 for pain as needed and a starter pack of Ultram for severe pain. Case was discussed with my attending, Dr. López, agreeable to plan and discharge. Undiagnosed new problem with uncertain prognosis? @ -No Drug Therapy requiring intensive monitoring for toxicity (Heparin, Nitro, Insulin, Cardizem)? @ -No Were any procedures done? @ -No Diagnosis/symptom? @ -Dental pain, dental caries Acute, or Chronic, or Acute on Chronic? @ -Acute Uncomplicated (without systemic symptoms) or Complicated (systemic symptoms)? @ -Uncomplicated Side effects of treatment? @ -No Exacerbation, Progression, or Severe Exacerbation? @ -No Poses a threat to life or bodily function? How? (Chest pain, USA, NM, pneumonia, PE, COPD, DKA, ARF, appy, cholecystitis, CVA, Diverticulitis, Homicidal, Suicidal, threat to staff... and all critical care pts) @ -No Disposition Clinical Impression: Fracture of tooth, Dental caries, Toothache Narrative: Please return to the Emergency Department if symptoms worsen or any other concerns. Complete full course of prescribed antibiotic. Disposition: HOME SELF-CARE Condition: Good Instructions (If sedation given, give patient instructions): Toothache (ED) Prescriptions: Amoxicillin 500 mg PO Q8H #30 capsule Ibuprofen [Motrin] 800 mg PO Q6HR #30 tab Is patient prescribed a controlled substance at d/c from ED?: No Referrals: Hansel Penaloza MD [Primary Care Provider] - 1-2 days Time of Disposition: 15:28
[2023-05-20 15:12] VITALS: BP 133/93; PULSE 111; RESP 18; TEMP 98.1
[2023-05-20] MEDS: ACETAMINOPHEN TAB 500 MG TAB PO STA (15:31)
[2023-05-20] MEDS: traMADol 50 MG STARTER PACK 3 TAB BTL PO STA (15:34)
== END 2023-05-20 15:39 | disposition home or self-care (01) ==
LOC: EC 15:04
DX: K03.81 Cracked tooth (principal); K02.9 Dental caries, unspecified; F17.200 Nicotine dependence, unspecified, uncomplicated; F12.90 Cannabis use, unspecified, uncomplicated; F15.90 Other stimulant use, unspecified, uncomplicated
CPT/HCPCS: 99283